=== PATIENT | female | born 1930 | race Caucasian/White ===

== ENCOUNTER → 2016-05-05 | Outpatient (CLI) | payer OTHER, BC ==
[~2016-05-05] MED LIST: ACET-1256 PO; ADVIN25/60 INH; AMOX500C3 PO; BIOT1TAB5; CHOL100010 PO; COEN10CA4; DORZ2SOL20 OP; FLUT0.15 NAE; GABA-112 PO; INSDGI SC; INSPMPHMLG; LEVO125T57 PO; NVLG SC; OMEG10007 PO; TORS20TA2 PO; TRAM-10 PO; TURM500C; WARF-283 PO; WARF1TAB6 PO; [UNRECOGNIZED DRUG - CODE]
[2016-05-05 16:59] LABS: BLOOD UREA NITROGEN 29 mg/dl (7-18)
== END | disposition home or self-care (01) ==
LOC: C.LABBC 12:25
DX: R42 Dizziness and giddiness (principal); Z51.81 Encounter for therapeutic drug level monitoring; Z79.01 Long term (current) use of anticoagulants

== ENCOUNTER → 2016-06-29 | Outpatient (CLI) | payer OTHER, BC ==
[~2016-06-29] MED LIST changes: +ACET500T57 PO; +HMLIS; +INSDGIPEN SC; +INSU3INJ3 SQ
[2016-06-29 17:04] LABS: BASO % 0.2 %; BASO ABS # 0.02 K/uL (0-0.2); COMPLETE YES; EOS % 1.2 %; HEMATOCRIT 44.5 % (37-47); IG% 0.2 %; LYMPH ABS # 3.27 K/uL (1.2-3.4); MEAN CELL VOLUME 101.4 fL (80-100); MEAN CORPUSCULAR HEMOGLOBIN 32.8 pg (25-34); MEAN CORPUSCULAR HGB CONC 32.4 g/dl (32-36); MEAN PLATELET VOLUME 11.1 fL (7.4-10.4); MONO % 7.2 %; NEUT % 59.2 %; PLATELET COUNT 193 K/uL (130-400); RED BLOOD COUNT 4.39 M/uL (4.2-5.4); WHITE BLOOD COUNT 10.22 K/uL (4.8-10.8)
[2016-06-29 17:12] LABS: BLOOD UREA NITROGEN 25 mg/dl (7-18); BUN/CREATININE RATIO 20.8 (10-20); CALCIUM 9.6 mg/dl (8.5-10.1); CARBON DIOXIDE 36 mmol/L (21-32); CHLORIDE 103 mmol/L (98-107); GLUCOSE 157 mg/dl (70-99); POTASSIUM 4.5 mmol/L (3.5-5.1); SODIUM 144 mmol/L (136-145)
== END | disposition home or self-care (01) ==
LOC: C.LABBC 15:05
PROVIDERS: ATTEND Internal Medicine Geriatric Medicine
DX: E03.9 Hypothyroidism, unspecified (principal); I10 Essential (primary) hypertension; J45.909 Unspecified asthma, uncomplicated; Z51.81 Encounter for therapeutic drug level monitoring; Z79.01 Long term (current) use of anticoagulants

== ENCOUNTER → 2016-07-29 | Outpatient (CLI) | payer OTHER, BC | END | disposition home or self-care (01) | LOC: C.PATHSPEC 16:45 | PROVIDERS: ATTEND Dermatology | DX: L82.1 Other seborrheic keratosis (principal); B07.9 Viral wart, unspecified ==

== ENCOUNTER → 2016-10-05 | Outpatient (CLI) | payer OTHER, BC ==
[~2016-10-05] MED LIST changes: -ACET500T57 PO; -AMOX500C3 PO; -HMLIS; -INSDGIPEN SC; -INSU3INJ3 SQ
[2016-10-05 14:05] LABS: BASO % 0.2 %; BASO ABS # 0.02 K/uL (0-0.2); COMPLETE YES; EOS % 1.4 %; HEMATOCRIT 43.9 % (37-47); IG% 0.7 %; LYMPH % 27.2 %; LYMPH ABS # 2.49 K/uL (1.2-3.4); MEAN CELL VOLUME 100.7 fL (80-100); MEAN CORPUSCULAR HEMOGLOBIN 33.5 pg (25-34); MEAN CORPUSCULAR HGB CONC 33.3 g/dl (32-36); MEAN PLATELET VOLUME 11.4 fL (7.4-10.4); MONO % 8.1 %; NEUT % 62.4 %; PLATELET COUNT 183 K/uL (130-400); RED BLOOD COUNT 4.36 M/uL (4.2-5.4); WHITE BLOOD COUNT 9.14 K/uL (4.8-10.8)
[2016-10-05 14:30] LABS: ESTIMATED AVERAGE GLUCOSE 171 mg/dl; HA1C FLAG Normal (Normal)
[2016-10-05 14:39] LABS: BLOOD UREA NITROGEN 20 mg/dl (7-18); BUN/CREATININE RATIO 16.8 (10-20); CALCIUM 9.8 mg/dl (8.5-10.1); CARBON DIOXIDE 34 mmol/L (21-32); CHLORIDE 102 mmol/L (98-107); GLUCOSE 168 mg/dl (70-99); POTASSIUM 4.2 mmol/L (3.5-5.1); SODIUM 141 mmol/L (136-145)
--- NOTE | 2016-11-06 10:40 | CODING QUERY MEDICAL NECESSITY ---
CQSUPPORTING DIAGNOSIS NEEDED A supporting diagnosis is required for the test/procedure performed on this patient in order for us to be reimbursed by the patient's insurance. Please provide a supporting diagnosis for the following test/procedure listed below next to the test name along with your signature. *If there is no additional diagnosis for this patient that would support the following test/procedure please document that below next to the test/procedure. Test(s)/Procedure(s) that require a supporting diagnosis: [place] 10/05/16 VITAMIN B12 TEST Provider Signature: Date: Thank you Aishwarya Gil Health Information Management Once completed, please kindly fax back to [phone] For questions please call [phone]
== END | disposition home or self-care (01) ==
LOC: C.LABBC 11:52
PROVIDERS: ATTEND Internal Medicine Geriatric Medicine
DX: E11.9 Type 2 diabetes mellitus without complications (principal); I10 Essential (primary) hypertension; J45.909 Unspecified asthma, uncomplicated; E55.9 Vitamin D deficiency, unspecified; Z51.81 Encounter for therapeutic drug level monitoring; Z79.01 Long term (current) use of anticoagulants

== ENCOUNTER → 2016-10-13 | Outpatient (CLI) | payer OTHER, BC | END | disposition home or self-care (01) | LOC: C.LABSPEC 16:48 | PROVIDERS: ATTEND Dermatology | DX: B35.3 Tinea pedis (principal) ==

== ENCOUNTER → 2016-10-30 | Outpatient (CLI) | payer OTHER, BC ==
[~2016-10-30] MED LIST changes: -TURM500C
--- NOTE | 2016-10-30 14:13 | DIAGNOSTIC IMAGING REPORT ---
BILATERAL LOWER EXTREMITY VENOUS DOPPLER HISTORY: I87.2 Chronic stasis [id number] COMPARISON STUDY: None. FINDINGS: There is normal compressibility, flow, and augmentation within the bilateral lower extremity deep venous systems. There is limited visualization of the calf vessels secondary to patient body habitus and nonspecific soft tissue edema. IMPRESSION: No sonographic evidence of deep venous thrombosis within the right or left lower extremity. Electronically signed by: Bala Noe M.D. 10/30/2016 2:12 PM Dictated Date/Time: 10/30/2016 2:11 PM
--- NOTE | 2016-10-30 14:32 | DIAGNOSTIC IMAGING REPORT ---
BILATERAL LOWER EXTREMITY ARTERIAL DOPPLER ULTRASOUND CLINICAL HISTORY: Chronic stasis dermatitis. COMPARISON STUDY: No previous studies for comparison. TECHNIQUE: Grayscale and color and duplex Doppler sonography of the lower extremities was performed. The patient deferred ankle to brachial indices. FINDINGS: There is triphasic flow within the right common femoral artery. There is biphasic flow within the right superficial femoral, popliteal, anterior tibial, posterior tibial and dorsalis pedis vessels. There is biphasic flow with the left common femoral, superficial femoral, popliteal, anterior tibial, posterior tibial and dorsalis pedis vessels. No elevated velocities were identified. There was minimal atherosclerotic plaque. IMPRESSION: Unremarkable bilateral lower extremity arterial Doppler ultrasound. No evidence of a hemodynamically significant stenosis. Patent vessels. Electronically signed by: Warner Villalta M.D. 10/30/2016 2:30 PM Dictated Date/Time: 10/30/2016 2:12 PM
== END | disposition home or self-care (01) ==
LOC: C.ULTR 12:32
PROVIDERS: ATTEND Internal Medicine Geriatric Medicine
DX: I87.2 Venous insufficiency (chronic) (peripheral) (principal)

== ENCOUNTER → 2016-11-09 | Outpatient (CLI) | payer OTHER, BC ==
--- NOTE | 2016-11-09 16:51 | DIAGNOSTIC IMAGING REPORT ---
HEAD CT NONCONTRAST CT DOSE: 537.48 mGy.cm HISTORY: Headaches, facial NUMBNESS TECHNIQUE: Multiaxial CT images of the head were performed without the use of intravenous contrast. Automated exposure control was utilized for this study. A dose lowering technique was utilized adhering to the principles of ALARA. Comparison: Head CT 02/18/2016. Findings: Moderate mucosal thickening within the left maxillary sinus which has improved. The mastoid air cells are clear. The calvarium and skull base are intact. There is no mass, hematoma, midline shift, acute infarct. White matter hypodensity is nonspecific but suggestive of microvascular ischemic change. The ventricles and sulci demonstrate mild age-related involutional changes. Impression: No acute intracranial abnormality. Improvement in the left maxillary sinus disease. Electronically signed by: Joaquin Alarcon M.D. 11/09/2016 4:49 PM Dictated Date/Time: 11/09/2016 4:46 PM
[2016-11-09 17:12] LABS: MEAN CELL VOLUME 99.5 fL (80-100); MEAN CORPUSCULAR HEMOGLOBIN 32.8 pg (25-34); MEAN PLATELET VOLUME 10.5 fL (7.4-10.4); PLATELET COUNT 186 K/uL (130-400); RED BLOOD COUNT 4.42 M/uL (4.2-5.4); WHITE BLOOD COUNT 9.96 K/uL (4.8-10.8)
[2016-11-11 11:17] LABS: C-REACTIVE PROT HIGHSEN 2.6 MG/L
--- NOTE | 2016-11-20 06:57 | CODING QUERY MEDICAL NECESSITY ---
SUPPORTING DIAGNOSIS NEEDED A supporting diagnosis is required for the test/procedure performed on this patient in order for us to be reimbursed by the patient's insurance. Please provide a supporting diagnosis for the following test/procedure listed below next to the test name along with your signature. *If there is no additional diagnosis for this patient that would support the following test/procedure please document that below next to the test/procedure. Test(s)/Procedure(s) that require a supporting diagnosis: * C-REACT PROTEIN HIGHSENS (CARDIO) DIAGNOSIS: Provider Signature: Date: Thank you Michelle Willard [facility] Limited Information Management Once completed, please kindly fax back to [phone] For questions please call [phone]
== END | disposition home or self-care (01) ==
LOC: C.CTS 16:31
PROVIDERS: ATTEND Physician Assistant
DX: R51 Headache (principal); R20.0 Anesthesia of skin; I67.9 Cerebrovascular disease, unspecified

== ENCOUNTER → 2016-11-11 | Outpatient (CLI) | payer OTHER, BC ==
[2016-11-11 22:03] LABS: LYME DISEASE AB IGG NEG (NEG); LYME DISEASE AB IGM NEG (NEG)
== END | disposition home or self-care (01) ==
LOC: C.LABBC 13:26
PROVIDERS: ATTEND Physician Assistant
DX: R53.83 Other fatigue (principal); R42 Dizziness and giddiness; R51 Headache

== ENCOUNTER → 2016-11-13 | Outpatient (CLI) | payer OTHER, BC ==
[2016-11-13 17:11] LABS: BLOOD UREA NITROGEN 32 mg/dl (7-18)
== END | disposition home or self-care (01) ==
LOC: C.LABBC 13:34
PROVIDERS: ATTEND Physician Assistant
DX: I10 Essential (primary) hypertension (principal); R42 Dizziness and giddiness

== ENCOUNTER → 2016-11-17 | Outpatient (CLI) | payer OTHER, BC ==
[~2016-11-17] MED LIST changes: +GADAVIST IV PRN
--- NOTE | 2016-11-17 10:10 | DIAGNOSTIC IMAGING REPORT ---
BRAIN COMBO FOR IAC CLINICAL HISTORY: Vertigo. COMPARISON STUDY: MRI of the brain April 14, [address] November 09, 2016. TECHNIQUE: Utilizing a 1.5 Ayah magnet, multiplanar, multi echo imaging of the brain was performed pre and postcontrast administration with thin cut imaging through the internal auditory canals. Injection of 8.5 cc of Gadavist IV was uneventful. FINDINGS: There are no areas of restricted diffusion. No acute intracranial hemorrhage, midline shift or mass effect is present. Ventricular system is normal for age. Basilar cisterns are patent. There are no extra-axial collections. Flow-voids for the major intracranial vessels are present. A 1.1 cm extra-axial enhancing focus overlying the anterior right frontal lobe likely reflects a meningioma which is only minimally increased in size since exam of April 14, 2007. There is no fluid within the mastoid air cells. No mass or abnormal enhancement is identified within the internal auditory canals. Left maxillary sinus is partially opacified. This is chronic. Calvarial signal is normal. White matter T2 hyperintense foci suggest small vessel disease. IMPRESSION: 1. No acute intracranial findings. 2. No abnormalities within the internal auditory canals. 3. Minimal increase in size of a suspected 1.1 cm right frontal meningioma since MRI of April 14, 2007. Electronically signed by: Warner Villalta M.D. 11/17/2016 10:09 AM Dictated Date/Time: 11/17/2016 9:58 AM
== END | disposition home or self-care (01) ==
LOC: C.MRIBC 08:48
PROVIDERS: ATTEND Physician Assistant
DX: R42 Dizziness and giddiness (principal)

== ENCOUNTER → 2016-11-20 | Outpatient (CLI) | payer OTHER, BC ==
[~2016-11-20] MED LIST changes: -GADAVIST IV PRN
[2016-11-20 13:54] LABS: BLOOD UREA NITROGEN 26 mg/dl (7-18); BUN/CREATININE RATIO 19.6 (10-20); CARBON DIOXIDE 35 mmol/L (21-32); CHLORIDE 98 mmol/L (98-107); GLUCOSE 105 mg/dl (70-99); SODIUM 141 mmol/L (136-145)
== END | disposition home or self-care (01) ==
LOC: C.LABBC 11:52
PROVIDERS: ATTEND Physician Assistant
DX: E11.9 Type 2 diabetes mellitus without complications (principal)

== ENCOUNTER → 2016-12-18 | Outpatient (CLI) | payer OTHER, BC ==
[~2016-12-18] MED LIST changes: +ACET500T57 PO; -ADVIN25/60 INH; -COEN10CA4; -INSDGI SC; -INSPMPHMLG; +INSU3INJ3 SQ
[2016-12-18 16:45] LABS: BLOOD UREA NITROGEN 29 mg/dl (7-18); BUN/CREATININE RATIO 24.7 (10-20); CALCIUM 9.3 mg/dl (8.5-10.1); CARBON DIOXIDE 33 mmol/L (21-32); CHLORIDE 102 mmol/L (98-107); CREATININE 1.19 mg/dl (0.60-1.20); GLUCOSE 178 mg/dl (70-99); POTASSIUM 4.6 mmol/L (3.5-5.1); SODIUM 140 mmol/L (136-145)
[2016-12-18 16:55] LABS: CREATININE, URINE 77.7 mg/dl; URINE PROTIEN/CREAT RATIO 0.1 (0-0.2); URINE TOTAL PROTEIN 7.1 mg/dl (0-11.9)
[2016-12-18 19:59] LABS: BASO % 0.2 %; BASO ABS # 0.02 K/uL (0-0.2); COMPLETE YES; EOS % 1.1 %; IG% 0.3 %; LYMPH % 31.8 %; LYMPH ABS # 2.83 K/uL (1.2-3.4); MEAN CELL VOLUME 100.7 fL (80-100); MEAN CORPUSCULAR HGB CONC 31.8 g/dl (32-36); MEAN PLATELET VOLUME 11.3 fL (7.4-10.4); NEUT % 56.6 %; PLATELET COUNT 168 K/uL (130-400); RED BLOOD COUNT 4.37 M/uL (4.2-5.4); WHITE BLOOD COUNT 8.91 K/uL (4.8-10.8)
[2016-12-19 06:49] LABS: ESTIMATED AVERAGE GLUCOSE 151 mg/dl; HA1C FLAG Normal (Normal)
== END | disposition home or self-care (01) ==
LOC: C.LABBC 13:28
PROVIDERS: ATTEND Internal Medicine Geriatric Medicine
DX: E11.42 Type 2 diabetes mellitus with diabetic polyneuropathy (principal); E03.9 Hypothyroidism, unspecified; E11.22 Type 2 diabetes mellitus with diabetic chronic kidney disease; I12.9 Hypertensive chronic kidney disease with stage 1 through stage 4 chronic kidney disease, or unspecified chronic kidney disease; N18.3 Chronic kidney disease, stage 3 (moderate); E55.9 Vitamin D deficiency, unspecified

== ENCOUNTER → 2016-12-28 | Outpatient (CLI) | payer OTHER, BC ==
--- NOTE | 2016-12-28 12:42 | DIAGNOSTIC IMAGING REPORT ---
CHEST 2 VIEWS ROUTINE CLINICAL HISTORY: R06.09 Exertional [id number] COMPARISON STUDY: 02/20/2014 FINDINGS: The cardiac and mediastinal contours remain stable. There is no focal pulmonary consolidation. There is no failure. There are no pleural effusions. There is mild chronic interstitial thickening.[ There are postsurgical changes of a reverse total right shoulder arthroplasty IMPRESSION: No active disease in the chest. Electronically signed by: Harry Eisenberg M.D. 12/28/2016 12:40 PM Dictated Date/Time: 12/28/2016 12:39 PM
== END | disposition home or self-care (01) ==
LOC: C.RADBC 12:19
PROVIDERS: ATTEND Internal Medicine Geriatric Medicine
DX: R06.09 Other forms of dyspnea (principal)

== ENCOUNTER → 2017-02-20 | Outpatient (CLI) | payer BC ==
[~2017-02-20] MED LIST changes: -ACET500T57 PO; +ACET500T58 PO; +HMLIS; +INSDGIPEN SC; -INSU3INJ3 SQ; -NVLG SC
--- NOTE | 2017-02-20 11:15 | DIAGNOSTIC IMAGING REPORT ---
CHEST 2 VIEWS ROUTINE HISTORY: R04.2 Coughing blood COMPARISON: Chest 12/28/2016. FINDINGS: Mild chronic interstitial thickening, unchanged. Stable right hilar prominence. No new focal lung consolidations to suggest pneumonia. No evidence for pulmonary edema. Right shoulder prosthesis. No pleural effusions. No pneumothorax. The heart is normal in size. IMPRESSION: No significant change compared to the prior study. No acute process. Electronically signed by: Joaquin Alarcon M.D. 02/20/2017 11:14 AM Dictated Date/Time: 02/20/2017 11:13 AM
== END | disposition home or self-care (01) ==
LOC: C.RAD 10:46
PROVIDERS: ATTEND Internal Medicine
DX: R04.2 Hemoptysis (principal)

== ENCOUNTER 2017-05-09 11:54 | Emergency (ER) | payer OTHER, BC ==
[~2017-05-09] VITALS: Ht 154.9 cm; Wt 86.0 kg
[~2017-05-09 11:54] MED LIST changes: -ACET500T58 PO; +CARB25TA12 PO; +CYAN10005 PO; -GABA-112 PO; +LIDO4LIQ; +OXYBUTYNIN PO; +PANT40TA PO; +SENN-61 PO; -WARF1TAB6 PO
[2017-05-09 11:56] VITALS: TEMP 36.8; Ht 154.9 cm; Wt 86.0 kg
[2017-05-09] MEDS ORDERED: TRAMADOL HCL 50 MG TAB PO STA (12:15)
[2017-05-09] MEDS ORDERED: ACETAMINOPHEN 500 MG TAB PO STA (12:15)
[2017-05-09 12:29] VITALS: O2SAT 92
--- NOTE | 2017-05-09 12:29 | EMERGENCY ROOM VISIT NOTE ---
History Report prepared by Simba: Bob Ward Under the Supervision of: Dr. Garret Bishop M.D. First contact with patient: 12:05 Chief Complaint: FALL Stated Complaint: FELL History of Present Illness The patient is a 86 year old female who presents to the Emergency Room due to a recent fall. Patient states that she was walking with a cane this morning going to [employer]. She states that she fell when her was trying to take off her coat. She believes that she fell with her palms facing down. Patient has associated symptoms of knee, shoulder, and hand pain. She adds that she has intermittent knee spasms. She states that red legs are her baseline. 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 Patient states that she does not remember what her last INR level was. She adds that she is supposed to use inhalers at home but forgets. Patient adds that she is on pain medication right now for a recent concussion. Pertinent past medical history includes arthritis and diabetes. Pertinent past surgical history includes knee surgery. Patient states the surgery was performed by Dr. Aldrich. Source of History: patient Onset: Recent Position: other (Global) Modifying Factors (Relieving): other (None) Note: Patient has knee, shoulder, and hand pain. She adds that she has knee spasms. Review of Systems See HPI for pertinent positives & negatives. A total of 10 systems reviewed and were otherwise negative. Past Medical & Surgical Medical Problems: (1) Diabetes (2) H/O hip replacement Surgical Problems: (1) H/O shoulder replacement (2) History of back surgery Family History Cancer Diabetes mellitus Heart disease Social History Smoking Status: Never Smoker Alcohol Use: none Drug Use: none Marital Status: Housing Status: lives with family Occupation Status: retired Current/Historical Medications Scheduled Acetaminophen (Tylenol), 1,000 MG PO HS Carbidopa/Levodopa (Sinemet 25MG/100MG), 0.5 TAB PO TID Cholecalciferol (Vitamin D), 5,000 INTER.UNIT PO DAILY Cyanocobalamin (Vitamin B-12), 1,000 MCG PO DAILY Dorzolamide Hcl-Timolol Maleat (Cosopt Oph), 1 DROPS OP QD Fish Oil ([place]-3), 1 CAP PO DAILY Insulin Glargine (Lantus Solostar), 36 UNITS SC QAM Insulin Glargine (Lantus Solostar), 22 UNITS SC QPM Insulin Human Lispro (Humalog Kwikpen), AC Levothyroxine (Levoxyl), 0.125 MG PO DAILY Pantoprazole (Protonix), 40 MG PO DAILY Senna (Senokot), 1 TAB PO DAILY Torsemide (Demadex), 1-2 TAB PO DAILY Warfarin Sodium (Warfarin Sodium), 4 MG PO 4XWK [calcium/mag], 2 DAILY [oxbutynin chloride], 10 MG PO DAILY Scheduled PRN Fluticasone Propionate (Nasal) (Flonase Allergy Relief), 2 SPRAYS MARIEL QD PRN for . Tramadol (Ultram), 50 MG PO DAILY PRN for Pain Miscellaneous Medications Biotin (Biotin) Lidocaine HCl (Aspercreme Lidocaine) Allergies Coded Allergies: Atorvastatin (Verified Allergy, Unknown, RASH, 11/09/15) Ezetimibe (Verified Allergy, Unknown, RASH, 11/09/15) Fluoxetine (Verified Allergy, Unknown, RASH, 11/09/15) Simvastatin (Verified Allergy, Unknown, RASH, 11/09/15) Sulfa Drugs (Verified Allergy, Unknown, HAS TAKEN LASIX BEFORE, 11/09/15) Oxycodone (Verified Adverse Reaction, Intermediate, PAIN MED-?OXYCONTIN- WENT CRAZY,BAD DREAMS, 11/09/15) Physical Exam Vital Signs Date Time Temp Pulse Resp B/P (MAP) Pulse Ox O2 Delivery O2 Flow Rate FiO2 05/09/17 13:46 66 20 143/62 95 Room Air 05/09/17 12:33 74 05/09/17 12:29 92 Room Air 05/09/17 11:56 36.8 68 18 156/67 93 Room Air Physical Exam GENERAL: Awake, alert, well-appearing, in no acute distress HENT: Contusion at center of forehead. Oropharynx unremarkable. EYES: Normal conjunctiva. Sclera non-icteric. NECK: Supple. No nuchal rigidity. FROM. No JVD. RESPIRATORY: Clear to auscultation. CARDIAC: Regular rate, normal rhythm. Extremities warm and well perfused. Pulses equal. ABDOMEN: Soft, non-distended. No tenderness to palpation. No rebound or guarding. No masses. RECTAL: Deferred. MUSCULOSKELETAL: Good range of motion in right shoulder, right hip, and right knee. Chest examination reveals no tenderness. The back is symmetrical on inspection without obvious abnormality. There is no CVA tenderness to palpation. No joint edema. LOWER EXTREMITIES: Calves are equal size bilaterally and non-tender. No edema. No discoloration. NEURO: Neurovascularly intact at the foot. Normal sensorium. No sensory or motor deficits noted. SKIN: No rash or jaundice noted. Medical Decision & Procedures ER Provider Diagnostic Interpretation: Radiology results as stated below per my review and radiologist interpretation: CHEST ONE VIEW PORTABLE CLINICAL HISTORY: Pain status post trauma COMPARISON STUDY: 02/20/2017 FINDINGS: The cardiac and mediastinal contours remain stable. There is interstitial thickening, similar to the preceding study. There is no acute parenchymal consolidation. There are no pleural effusions. There is no pneumothorax. Postsurgical changes involve the right shoulder.[ IMPRESSION: Mild chronic interstitial thickening. No acute parenchymal consolidation. No evidence of pneumothorax. Electronically signed by: Harry Eisenberg M.D. 05/09/2017 2:00 PM R FEMUR 2 VIEWS ROUTINE CLINICAL HISTORY: Right hip and femur pain status post trauma COMPARISON: None. DISCUSSION: There are postsurgical changes of a total right hip arthroplasty. There are postsurgical changes of a total right knee arthroplasty. No acute fractures or dislocations are visualized. There are vascular calcifications present. IMPRESSION: Postsurgical changes. No acute fractures or dislocations identified. Electronically signed by: Harry Eisenberg M.D. 05/09/2017 1:[address] HEAD WITHOUT CONTRAST (CT) CLINICAL HISTORY: Head pain status post trauma COMPARISON STUDY: 11/09/2016 TECHNIQUE: Axial CT of the brain is performed from the vertex to the skull base. IV contrast was not administered for this examination. A dose lowering technique was utilized adhering to the principles of ALARA. CT DOSE: 537.48 mGy.cm FINDINGS: No intra or extra-axial mass lesions are visualized. There is no CT evidence of acute cortical infarction. There is no evidence of midline shift. There is no acute hemorrhage. No calvarial fractures are visualized. There are patchy white matter hypodensities likely on a small vessel basis. There is a stable cortical hypodensity within the left parasagittal frontoparietal region There is no evidence of pathologic ventricular dilatation. There is marked left maxilla sinus mucosal thickening. Calcific densities are present within the sinus. The findings remain similar to a prior June 2013 examination IMPRESSION: No acute intracranial findings. Electronically signed by: Harry Eisenberg M.D. 05/09/2017 1:10 PM R KNEE 2 VIEWS ROUTINE CLINICAL HISTORY: Right knee pain status post trauma COMPARISON: None. DISCUSSION: There are postsurgical changes of a total right knee arthroplasty and patellar resurfacing. No acute fractures or dislocations are visualized. There are vascular calcifications present. There is an equivocal small joint effusion. IMPRESSION: Postsurgical change. No acute fractures or dislocations. Electronically signed by: Harry Eisenberg M.D. 05/09/2017 1:58 PM PELVIS 1 OR 2 VIEW ROUTINE CLINICAL HISTORY: Pain status post trauma COMPARISON STUDY: 2013 FINDINGS: There are postsurgical changes present within the lumbar spine. There are postsurgical changes of a total right hip arthroplasty. There are vascular calcifications present. No acute fractures or dislocations are visualized. IMPRESSION: Postsurgical changes. No acute fractures. Electronically signed by: Harry Eisenberg M.D. 05/09/2017 1:58 PM R SHOULDER MIN 2 VIEWS ROUTINE CLINICAL HISTORY: Right shoulder pain status post trauma COMPARISON: None. DISCUSSION: There are postsurgical changes of a reversed total right shoulder arthroplasty. No acute fractures or dislocations are visualized. There is a prominent spurlike density arising from the superior lateral margin of the scapula. This is present on the prior January 2017 chest x-ray. IMPRESSION: Postsurgical change. No acute fractures or dislocations are visualized Electronically signed by: Harry Eisenberg M.D. 05/09/2017 1:59 PM Laboratory Results 05/09/17 12:30 Red Blood Count 4.12, Mean Corpuscular Volume 99.5, Mean Corpuscular Hemoglobin 32.8, Mean Corpuscular Hemoglobin Concent 32.9, Mean Platelet Volume 10.2, Neutrophils (%) (Auto) 67.6, Lymphocytes (%) (Auto) 23.8, Monocytes (%) (Auto) 6.7, Eosinophils (%) (Auto) 1.2, Basophils (%) (Auto) 0.3, Neutrophils # (Auto) 6.96, Lymphocytes # (Auto) 2.45, Monocytes # (Auto) 0.69, Eosinophils # (Auto) 0.12, Basophils # (Auto) 0.03 05/09/17 12:30 Test 05/09/17 12:30 05/09/17 12:31 05/09/17 13:14 White Blood Count 10.29 K/uL (4.8-10.8) Red Blood Count 4.12 M/uL (4.2-5.4) Hemoglobin 13.5 g/dL (12.0-16.0) Hematocrit 41.0 % (37-47) Mean Corpuscular Volume 99.5 fL (80-100) Mean Corpuscular Hemoglobin 32.8 pg (25-34) Mean Corpuscular Hemoglobin Concent 32.9 g/dl (32-36) Platelet Count 166 K/uL (130-400) Mean Platelet Volume 10.2 fL (7.4-10.4) Neutrophils (%) (Auto) 67.6 % Lymphocytes (%) (Auto) 23.8 % Monocytes (%) (Auto) 6.7 % Eosinophils (%) (Auto) 1.2 % Basophils (%) (Auto) 0.3 % Neutrophils # (Auto) 6.96 K/uL (1.4-6.5) Lymphocytes # (Auto) 2.45 K/uL (1.2-3.4) Monocytes # (Auto) 0.69 K/uL (0.11-0.59) Eosinophils # (Auto) 0.12 K/uL (0-0.5) Basophils # (Auto) 0.03 K/uL (0-0.2) RDW Standard Deviation 48.0 fL (36.4-46.3) RDW Coefficient of Variation 13.2 % (11.5-14.5) Immature Granulocyte % (Auto) 0.4 % Immature Granulocyte # (Auto) 0.04 K/uL (0.00-0.02) Anion Gap 5.0 mmol/L (3-11) Est Creatinine Clear Calc Drug Dose 29.5 ml/min Estimated GFR () 42.0 Estimated GFR (Non- 36.3 BUN/Creatinine Ratio 21.1 (10-20) Calcium Level 10.0 mg/dl (8.5-10.1) Total Bilirubin 0.4 mg/dl (0.2-1) Direct Bilirubin < 0.1 mg/dl (0-0.2) Aspartate Amino Transf (AST/SGOT) 15 U/L (15-37) Alanine Aminotransferase (ALT/SGPT) 16 U/L (12-78) Alkaline Phosphatase 72 U/L (45-117) Total Protein 6.5 gm/dl (6.4-8.2) Albumin 3.1 gm/dl (3.4-5.0) Bedside Glucose 174 mg/dl (70-90) Prothrombin Time 14.9 SECONDS (9.0-12.0) Prothromb Time International Ratio 1.4 (0.9-1.1) Activated Partial Thromboplast Time 26.9 SECONDS (21.0-31.0) Partial Thromboplastin Ratio 1.0 Labs reviewed by ED physician. Medications Administered Medications (Trade) Dose Ordered Sig/Mitali Route Start Time Stop Time Status Last Admin Dose Admin Tramadol HCl (Ultram Tab) 50 mg NOW STAT PO 05/09/17 12:15 05/09/17 12:20 DC 05/09/17 12:27 50 MG Acetaminophen (Tylenol Tab) 1,000 mg NOW STAT PO 05/09/17 12:15 05/09/17 12:20 DC 05/09/17 12:27 1,000 MG ED Course 1201: Past medical records reviewed. The patient was evaluated in room B4B. A complete history and physical examination was performed. 1215: Tylenol Tab 1000mg PO and Ultram Tab 50mg PO 1412: Upon reexamination the patient is resting comfortably. I discussed results and treatment plan with the patient. She verbalizes agreement and understanding. The patient is ready for discharge. Medical Decision Differential diagnosis: Etiologies such as fracture, dislocation, intra-abdominal, pneumothorax, intrathoracic , intracranial, neurologic, as well as other traumatic pathologies were entertained. This is an 86-year-old female presents to the emergency department complaining of a fall. The patient's fall was mechanical in nature. She was given tramadol here in the emergency department. Repeat examination revealed improvement in the patient's symptoms. There is concern that there may be pneumonia on the patient's chest x-ray. Based on these findings I did start the patient on Levaquin. She does not have an elevated white blood cell count and I felt that the patient would benefit from a rehabilitation stay. This reason I did case management involved. They asked that the patient received PT OT evaluation. Medication Reconcilliation Current Medication List: was personally reviewed by me Blood Pressure Screening Patient's blood pressure: Elevated blood pressure Blood pressure disposition: Referred to PCP Impression Primary Impression: Fall Scribe Attestation The scribe's documentation has been prepared under my direction and personally reviewed by me in its entirety. I confirm that the note above accurately reflects all work, treatment, procedures, and medical decision making performed by me. Departure Information Dispostion Home / Self-Care Referrals René French M.D. (PCP) Forms HOME CARE DOCUMENTATION FORM, IMPORTANT VISIT INFORMATION Patient Instructions ED Fall Dizziness Weakn Balance, My [facility], Swelling Knee Pain Reduce Additional Instructions Follow up with Dr Santoyo's office for continued knee pain You have been examined and treated today on an emergency basis only. This is not a substitute for, or an effort to provide, complete comprehensive medical care. It is impossible to recognize and treat all injuries or illnesses in a single emergency department visit. It is therefore important that you follow up closely with Dr French. Call as soon as possible for an appointment. Thank you for your time and consideration. I look forward to speaking with you again soon. Please don't hesitate to call us if you have any questions. Problem Qualifiers Primary Impression: Fall Encounter type: initial encounter Qualified Codes: W19.XXXA - Unspecified fall, initial encounter
[2017-05-09 12:43] LABS: BASO % 0.3 %; BASO ABS # 0.03 K/uL (0-0.2); EOS % 1.2 %; EOS ABS # 0.12 K/uL (0-0.5); HEMOGLOBIN 13.5 g/dL (12.0-16.0); IG# 0.04 K/uL (0.00-0.02); LYMPH % 23.8 %; LYMPH ABS # 2.45 K/uL (1.2-3.4); MEAN CELL VOLUME 99.5 fL (80-100); MEAN CORPUSCULAR HEMOGLOBIN 32.8 pg (25-34); MEAN CORPUSCULAR HGB CONC 32.9 g/dl (32-36); MEAN PLATELET VOLUME 10.2 fL (7.4-10.4); MONO % 6.7 %; MONO ABS # 0.69 K/uL (0.11-0.59); NEUT % 67.6 %; NEUT ABS # 6.96 K/uL (1.4-6.5); PLATELET COUNT 166 K/uL (130-400); RED CELL DISTRIBUTION WIDTH CV 13.2 % (11.5-14.5); WHITE BLOOD COUNT 10.29 K/uL (4.8-10.8)
[2017-05-09 13:04] LABS: ALBUMIN 3.1 gm/dl (3.4-5.0); ALT/SGPT 16 U/L (12-78); AST/SGOT 15 U/L (15-37); BLOOD UREA NITROGEN 28 mg/dl (7-18); CARBON DIOXIDE 35 mmol/L (21-32); CREATININE 1.31 mg/dl (0.60-1.20); GLUCOSE 175 mg/dl (70-99); POTASSIUM 4.4 mmol/L (3.5-5.1); SODIUM 140 mmol/L (136-145)
[2017-05-09 13:07] LABS: ALKALINE PHOSPHATASE 72 U/L (45-117); TOTAL PROTEIN 6.5 gm/dl (6.4-8.2)
--- NOTE | 2017-05-09 13:11 | DIAGNOSTIC IMAGING REPORT ---
CT HEAD WITHOUT CONTRAST (CT) CLINICAL HISTORY: Head pain status post trauma COMPARISON STUDY: 11/09/2016 TECHNIQUE: Axial CT of the brain is performed from the vertex to the skull base. IV contrast was not administered for this examination. A dose lowering technique was utilized adhering to the principles of ALARA. CT DOSE: 537.48 mGy.cm FINDINGS: No intra or extra-axial mass lesions are visualized. There is no CT evidence of acute cortical infarction. There is no evidence of midline shift. There is no acute hemorrhage. No calvarial fractures are visualized. There are patchy white matter hypodensities likely on a small vessel basis. There is a stable cortical hypodensity within the left parasagittal frontoparietal region There is no evidence of pathologic ventricular dilatation. There is marked left maxilla sinus mucosal thickening. Calcific densities are present within the sinus. The findings remain similar to a prior June 2013 examination IMPRESSION: No acute intracranial findings. Electronically signed by: Harry Eisenberg M.D. 05/09/2017 1:10 PM Dictated Date/Time: 05/09/2017 1:06 PM
[2017-05-09 13:42] LABS: INR 1.4 (0.9-1.1); PTT PATIENT 26.9 SECONDS (21.0-31.0)
[2017-05-09 13:46] VITALS: BP 143/62; PULSE 66; O2SAT 95
--- NOTE | 2017-05-09 13:59 | DIAGNOSTIC IMAGING REPORT ---
R KNEE 2 VIEWS ROUTINE CLINICAL HISTORY: Right knee pain status post trauma COMPARISON: None. DISCUSSION: There are postsurgical changes of a total right knee arthroplasty and patellar resurfacing. No acute fractures or dislocations are visualized. There are vascular calcifications present. There is an equivocal small joint effusion. IMPRESSION: Postsurgical change. No acute fractures or dislocations. Electronically signed by: Harry Eisenberg M.D. 05/09/2017 1:58 PM Dictated Date/Time: 05/09/2017 1:45 PM
--- NOTE | 2017-05-09 14:00 | DIAGNOSTIC IMAGING REPORT ---
PELVIS 1 OR 2 VIEW ROUTINE CLINICAL HISTORY: Pain status post trauma COMPARISON STUDY: 2013 FINDINGS: There are postsurgical changes present within the lumbar spine. There are postsurgical changes of a total right hip arthroplasty. There are vascular calcifications present. No acute fractures or dislocations are visualized. IMPRESSION: Postsurgical changes. No acute fractures. Electronically signed by: Harry Eisenberg M.D. 05/09/2017 1:58 PM Dictated Date/Time: 05/09/2017 1:43 PM
--- NOTE | 2017-05-09 14:00 | DIAGNOSTIC IMAGING REPORT ---
R SHOULDER MIN 2 VIEWS ROUTINE CLINICAL HISTORY: Right shoulder pain status post trauma COMPARISON: None. DISCUSSION: There are postsurgical changes of a reversed total right shoulder arthroplasty. No acute fractures or dislocations are visualized. There is a prominent spurlike density arising from the superior lateral margin of the scapula. This is present on the prior January 2017 chest x-ray. IMPRESSION: Postsurgical change. No acute fractures or dislocations are visualized Electronically signed by: Harry Eisenberg M.D. 05/09/2017 1:59 PM Dictated Date/Time: 05/09/2017 1:42 PM
--- NOTE | 2017-05-09 14:00 | DIAGNOSTIC IMAGING REPORT ---
R FEMUR 2 VIEWS ROUTINE CLINICAL HISTORY: Right hip and femur pain status post trauma COMPARISON: None. DISCUSSION: There are postsurgical changes of a total right hip arthroplasty. There are postsurgical changes of a total right knee arthroplasty. No acute fractures or dislocations are visualized. There are vascular calcifications present. IMPRESSION: Postsurgical changes. No acute fractures or dislocations identified. Electronically signed by: Harry Eisenberg M.D. 05/09/2017 1:58 PM Dictated Date/Time: 05/09/2017 1:44 PM
--- NOTE | 2017-05-09 14:01 | DIAGNOSTIC IMAGING REPORT ---
CHEST ONE VIEW PORTABLE CLINICAL HISTORY: Pain status post trauma COMPARISON STUDY: 02/20/2017 FINDINGS: The cardiac and mediastinal contours remain stable. There is interstitial thickening, similar to the preceding study. There is no acute parenchymal consolidation. There are no pleural effusions. There is no pneumothorax. Postsurgical changes involve the right shoulder.[ IMPRESSION: Mild chronic interstitial thickening. No acute parenchymal consolidation. No evidence of pneumothorax. Electronically signed by: Harry Eisenberg M.D. 05/09/2017 2:00 PM Dictated Date/Time: 05/09/2017 1:59 PM
== END 2017-05-09 14:30 | disposition home or self-care (01) ==
LOC: C.EDB 11:55
DX: S00.83XA Contusion of other part of head, initial encounter (principal); M25.569 Pain in unspecified knee; M25.519 Pain in unspecified shoulder; M79.643 Pain in unspecified hand; W01.198A Fall on same level from slipping, tripping and stumbling with subsequent striking against other object, initial encounter; R03.0 Elevated blood-pressure reading, without diagnosis of hypertension; M19.90 Unspecified osteoarthritis, unspecified site; E11.9 Type 2 diabetes mellitus without complications; Z79.01 Long term (current) use of anticoagulants; Z86.2 Personal history of diseases of the blood and blood-forming organs and certain disorders involving the immune mechanism; Z98.890 Other specified postprocedural states; Z96.649 Presence of unspecified artificial hip joint; Z79.4 Long term (current) use of insulin; Z88.8 Allergy status to other drugs, medicaments and biological substances; Z88.6 Allergy status to analgesic agent; Z88.2 Allergy status to sulfonamides; Z83.3 Family history of diabetes mellitus; Z82.49 Family history of ischemic heart disease and other diseases of the circulatory system

== ENCOUNTER → 2017-06-28 | Outpatient (CLI) | payer OTHER, BC ==
[2017-06-28 16:55] LABS: BASO % 0.2 %; BASO ABS # 0.02 K/uL (0-0.2); EOS % 1.3 %; EOS ABS # 0.14 K/uL (0-0.5); HEMATOCRIT 45.7 % (37-47); IG# 0.03 K/uL (0.00-0.02); LYMPH % 25.3 %; LYMPH ABS # 2.73 K/uL (1.2-3.4); MEAN CELL VOLUME 99.1 fL (80-100); MEAN CORPUSCULAR HEMOGLOBIN 32.5 pg (25-34); MEAN CORPUSCULAR HGB CONC 32.8 g/dl (32-36); MONO % 7.8 %; MONO ABS # 0.84 K/uL (0.11-0.59); NEUT % 65.1 %; NEUT ABS # 7.02 K/uL (1.4-6.5); PLATELET COUNT 186 K/uL (130-400); RED CELL DISTRIBUTION WIDTH CV 12.9 % (11.5-14.5); RED CELL DISTRIBUTION WIDTH SD 46.6 fL (36.4-46.3); WHITE BLOOD COUNT 10.78 K/uL (4.8-10.8)
[2017-06-28 17:02] LABS: INR 1.7 (0.9-1.1)
[2017-06-28 17:21] LABS: ALBUMIN 3.5 gm/dl (3.4-5.0); ALT/SGPT 17 U/L (12-78); AST/SGOT 18 U/L (15-37); BLOOD UREA NITROGEN 32 mg/dl (7-18); CALCIUM 10.5 mg/dl (8.5-10.1); CARBON DIOXIDE 37 mmol/L (21-32); CREATININE 1.37 mg/dl (0.60-1.20); GLUCOSE 87 mg/dl (70-99); POTASSIUM 4.3 mmol/L (3.5-5.1); SODIUM 141 mmol/L (136-145)
[2017-06-28 17:32] LABS: ALKALINE PHOSPHATASE 70 U/L (45-117); CHOLESTEROL 190 mg/dl (0-200); LDL CHOLESTEROL CALCULATED 86 mg/dl; TOTAL PROTEIN 7.2 gm/dl (6.4-8.2)
[2017-06-29 07:32] LABS: HEMOGLOBIN A1C 6.6 % (4.5-5.6)
== END | disposition home or self-care (01) ==
LOC: C.LABBC 14:40
PROVIDERS: ATTEND Internal Medicine Geriatric Medicine
DX: R32 Unspecified urinary incontinence (principal); Z79.01 Long term (current) use of anticoagulants

== ENCOUNTER → 2017-07-05 | Outpatient (CLI) | payer OTHER, BC ==
[2017-07-05 18:20] LABS: BLOOD UREA NITROGEN 27 mg/dl (7-18); CALCIUM 9.4 mg/dl (8.5-10.1); CARBON DIOXIDE 36 mmol/L (21-32); CREATININE 1.36 mg/dl (0.60-1.20); GLUCOSE 122 mg/dl (70-99); POTASSIUM 4.4 mmol/L (3.5-5.1); SODIUM 142 mmol/L (136-145)
== END | disposition home or self-care (01) ==
LOC: C.LABBC 13:16
PROVIDERS: ATTEND Internal Medicine Geriatric Medicine
DX: Z79.01 Long term (current) use of anticoagulants (principal); E83.52 Hypercalcemia

== ENCOUNTER 2017-10-25 12:42 | Emergency (ER) | payer OTHER, BC ==
[2017-10-25 12:44] VITALS: TEMP 36.8; Ht 154.9 cm
--- NOTE | 2017-10-25 13:22 | DIAGNOSTIC IMAGING REPORT ---
CHEST ONE VIEW PORTABLE HISTORY: fall COMPARISON: Chest 05/09/2017. FINDINGS: Chronic interstitial thickening, unchanged. There are low lung volumes. The heart is normal in size. No focal lung consolidations to suggest pneumonia. No evidence for pulmonary edema. There is a right shoulder prosthesis. IMPRESSION: No significant change compared to the prior study. No acute process. Stable chronic interstitial thickening. Electronically signed by: Joaquin Alarcon M.D. 10/25/2017 1:21 PM Dictated Date/Time: 10/25/2017 1:19 PM
[2017-10-25] MEDS ORDERED: LEVO125T5 PO (13:44)
[2017-10-25] MEDS ORDERED: CHOL1000 PO (13:44)
[2017-10-25 13:45] LABS: BASO % 0.2 %; BASO ABS # 0.02 K/uL (0-0.2); EOS % 0.5 %; EOS ABS # 0.05 K/uL (0-0.5); HEMATOCRIT 42.9 % (37-47); IG# 0.04 K/uL (0.00-0.02); LYMPH % 24.7 %; LYMPH ABS # 2.26 K/uL (1.2-3.4); MEAN CELL VOLUME 98.4 fL (80-100); MEAN CORPUSCULAR HEMOGLOBIN 32.1 pg (25-34); MEAN CORPUSCULAR HGB CONC 32.6 g/dl (32-36); MEAN PLATELET VOLUME 10.6 fL (7.4-10.4); MONO % 7.1 %; MONO ABS # 0.65 K/uL (0.11-0.59); NEUT % 67.1 %; NEUT ABS # 6.13 K/uL (1.4-6.5); PLATELET COUNT 174 K/uL (130-400); RED CELL DISTRIBUTION WIDTH CV 12.9 % (11.5-14.5); RED CELL DISTRIBUTION WIDTH SD 46.4 fL (36.4-46.3); WHITE BLOOD COUNT 9.15 K/uL (4.8-10.8)
[2017-10-25 14:00] LABS: ALBUMIN 3.4 gm/dl (3.4-5.0); ALKALINE PHOSPHATASE 66 U/L (45-117); ALT/SGPT 16 U/L (12-78); AST/SGOT 19 U/L (15-37); BLOOD UREA NITROGEN 25 mg/dl (7-18); CALCIUM 9.7 mg/dl (8.5-10.1); CARBON DIOXIDE 33 mmol/L (21-32); CREATININE 1.33 mg/dl (0.60-1.20); GLUCOSE 157 mg/dl (70-99); POTASSIUM 3.6 mmol/L (3.5-5.1); SODIUM 140 mmol/L (136-145)
[2017-10-25] MEDS ORDERED: LIDOCAINE/EPINEPH/TETRACAINE 1 EA SYR EXT STA (14:32)
--- NOTE | 2017-10-25 14:37 | DIAGNOSTIC IMAGING REPORT ---
HEAD CT NONCONTRAST CT DOSE: 690.05 mGycm HISTORY: fall on coumadin TECHNIQUE: Multiaxial CT images of the head were performed without the use of intravenous contrast. Automated exposure control was utilized for this study. A dose lowering technique was utilized adhering to the principles of ALARA. Comparison: Head CT 05/09/2017. Findings: Complete opacification of the left maxillary sinus, unchanged. The mastoid air cells are clear. The calvarium and skull base are intact. There is no mass, hematoma, midline shift, acute infarct. White matter hypodensity is nonspecific but suggestive of microvascular ischemic change. The ventricles and sulci demonstrate mild age-related involutional changes. Impression: No significant change compared to the prior study. No acute intracranial abnormality. Electronically signed by: Joaquin Alarcon M.D. 10/25/2017 2:35 PM Dictated Date/Time: 10/25/2017 2:24 PM
--- NOTE | 2017-10-25 14:54 | DIAGNOSTIC IMAGING REPORT ---
CT OF THE CERVICAL SPINE CLINICAL HISTORY: Neck pain status post trauma COMPARISON STUDY: July 29, 2015 CT DOSE: 378.76 mGycm TECHNIQUE: CT scan of the cervical spine was performed from the skull base to the thoracic inlet. Images are reviewed in the axial, sagittal, and coronal planes. IV contrast was not administered for this examination. A dose lowering technique was utilized adhering to the principles of ALARA. FINDINGS: The visualized portions of the lung apices reveal no evidence of pneumothorax. There is mild prevertebral soft tissue edema at the C2 level. There is an oblique C2 fracture extending through the odontoid and lateral C2 mass. There is no subluxation. There are advanced multilevel degenerative changes. There is suspected spinal stenosis at the C7-T1 level. IMPRESSION: 1. Acute oblique odontoid fracture involving the left C2 body, and left C1-2 articulating facet. This is a type III fracture. Electronically signed by: Harry Eisenberg M.D. 10/25/2017 2:52 PM Dictated Date/Time: 10/25/2017 2:43 PM
--- NOTE | 2017-10-25 15:25 | EMERGENCY ROOM VISIT NOTE ---
ED Visit Note First contact with patient: 15:10 Dr. Godoy requested that I evaluate the patient for scalp laceration repair. Please see his documentation for full exam and visit details. PROCEDURE NOTE: I examined the patient. Verbal consent was obtained to perform the procedure. Using sterile technique the wound was cleaned with Betadine. The area was sterilely draped. LET gel was used to anesthetize the patient's scalp. Once the patient was numb, the wound was copiously irrigated under pressure with sterile saline. The wound was explored and there were no deep structures present. The laceration was noted to be 1.5 cm in length. The laceration was repaired using 2 marylou with the wound edges being well approximated. The patient tolerated the procedure well with no known complications and hemostasis was achieved. The area was cleaned with sterile saline and dressed with bacitracin ointment.
[2017-10-25] MEDS ORDERED: OPTIRAY 320 IV PRN (16:45)
--- NOTE | 2017-10-25 18:34 | DIAGNOSTIC IMAGING REPORT ---
CT ANGIOGRAPHY OF THE CHEST, PULMONARY EMBOLUS PROTOCOL CLINICAL HISTORY: Hypoxia. Fall. COMPARISON STUDY: Chest CT February 11, 2013 and chest radiograph performed earlier today. TECHNIQUE: Following IV administration of 84 mL of Optiray-320, helical axial images of the chest were obtained utilizing the pulmonary embolus protocol. Maximal intensity projections and sagittal and coronal reformats were viewed on an independent 3D workstation. IV contrast was administered without complication. A dose lowering technique was utilized adhering to the principles of ALARA. CT DOSE: 457.43 mGy.cm FINDINGS: No pulmonary emboli are identified although the segmental and subsegmental pulmonary arteries are suboptimally assessed due to respiratory motion artifact. The heart is mildly enlarged. There is no pericardial effusion. No enlarged thoracic lymph nodes are present. The patient is status post right mastectomy. Central airways are patent. Lungs are suboptimally assessed due to respiratory motion. A 5 mm left upper lobe nodule shown on image 148 of [address] of February 11, 2013. This is benign. Left lower lobe groundglass opacity favors atelectasis. No pneumothorax or pleural effusion is noted. There is no pneumomediastinum. No acute rib or thoracic spine fracture is identified. A 2.5 cm left adrenal nodule has mildly increased in size since CT of February 11, 2013. This is likely benign given relative stability. Apparent increased attenuation within this nodule may be artifactual. This favors an adenoma. IMPRESSION: 1. No pulmonary emboli identified although segmental and subsegmental pulmonary arteries suboptimally assessed due to respiratory motion artifact. 2. Scattered groundglass opacities, most pronounced within the left lower lobe. Atelectasis is favored although a mild infectious process could appear similar. 3. 2.5 cm left adrenal nodule which is likely benign given relative stability since CT of February 11, 2013. Electronically signed by: Warner Villalta M.D. 10/25/2017 6:33 PM Dictated Date/Time: 10/25/2017 6:22 PM
[2017-10-25] MEDS ORDERED: ACETAMINOPHEN 500 MG TAB PO STA (18:39)
[2017-10-25 19:19] VITALS: BP 171/65; PULSE 81; O2SAT 95
--- NOTE | 2017-10-25 19:55 | EMERGENCY ROOM VISIT NOTE ---
History Report prepared by Simba: Tiffany Ortiz Under the Supervision of: Dr. Arnoldo Godoy D.O. First contact with patient: 13:00 Chief Complaint: HEAD INJURY (MINOR) Stated Complaint: FELL HIT HEAD, NECK History of Present Illness The patient is a 86 year old female who presents to the Emergency Room with complaints of an episode of a head injury that onset today. The patient notes that she fell due to dizziness that onset 4 years ago. She notes that she fell sideways and hit the door-jam. The patient notes that she did not pass out. The patient complains of head pain, pain in her left shoulder, and neck pain. The patient denies headache. She states that she takes blood thinners. Patient notes that she always has left chest wall pain and this is not new. Last tetanus shot he believes was within the past 10 years. Source of History: patient Onset: today Position: head Timing: other (episode) Associated Symptoms: + neck pain, No LOC, No headache Note: The patient complains of left shoulder pain. Review of Systems See HPI for pertinent positives & negatives. A total of 10 systems reviewed and were otherwise negative. Past Medical & Surgical Medical Problems: (1) Diabetes (2) H/O hip replacement Surgical Problems: (1) H/O shoulder replacement (2) History of back surgery Family History Cancer Diabetes mellitus Heart disease Social History Smoking Status: Never Smoker Alcohol Use: none Drug Use: none Marital Status: Housing Status: lives with family Occupation Status: retired Current/Historical Medications Scheduled Acetaminophen (Tylenol), 1,000 MG PO HS Carbidopa/Levodopa (Sinemet 25MG/100MG), 0.5 TAB PO TID Cholecalciferol (Vitamin D3), 1 TAB PO DAILY Cyanocobalamin (Vitamin B-12), 1,000 MCG PO DAILY Dorzolamide Hcl-Timolol Maleat (Cosopt Oph), 1 DROPS OP QD Fish Oil (Attica-3), 1 CAP PO DAILY Insulin Glargine (Lantus Solostar), 36 UNITS SC QAM Insulin Glargine (Lantus Solostar), 22 UNITS SC QPM Insulin Human Lispro (Humalog Kwikpen), AC Levothyroxine Sodium (Levothyroxine Sodium), 1 TAB PO DAILY Pantoprazole (Protonix), 40 MG PO DAILY Senna (Senokot), 1 TAB PO DAILY Torsemide (Demadex), 1-2 TAB PO DAILY Warfarin Sodium (Warfarin Sodium), 4 MG PO 4XWK [calcium/mag], 2 DAILY [oxbutynin chloride], 10 MG PO DAILY Scheduled PRN Fluticasone Propionate (Nasal) (Flonase Allergy Relief), 2 SPRAYS MARIEL QD PRN for . Tramadol (Ultram), 50 MG PO DAILY PRN for Pain Miscellaneous Medications Biotin (Biotin) Lidocaine HCl (Aspercreme Lidocaine) Allergies Coded Allergies: Atorvastatin (Verified Allergy, Unknown, RASH, 10/25/17) Ezetimibe (Verified Allergy, Unknown, RASH, 10/25/17) Fluoxetine (Verified Allergy, Unknown, RASH, 10/25/17) Simvastatin (Verified Allergy, Unknown, RASH, 10/25/17) Sulfa Drugs (Verified Allergy, Unknown, HAS TAKEN LASIX BEFORE, 10/25/17) Oxycodone (Verified Adverse Reaction, Intermediate, PAIN MED-?OXYCONTIN- WENT CRAZY,BAD DREAMS, 10/25/17) Physical Exam Vital Signs Date Time Temp Pulse Resp B/P (MAP) Pulse Ox O2 Delivery O2 Flow Rate FiO2 10/25/17 19:19 81 18 171/65 95 10/25/17 17:10 79 18 158/65 95 Room Air 10/25/17 15:14 78 18 170/80 94 Room Air 10/25/17 12:44 36.8 77 20 150/62 97 Room Air Physical Exam GENERAL: alert, well appearing, well nourished, no distress, non-toxic HEAD: normal cephalic, 2.5 cm laceration on the right occipital region. EYE EXAM: normal conjunctiva, PERRL and EOM's grossly intact OROPHARYNX: no exudate, no erythema, lips, buccal mucosa, and tongue normal and mucous membranes are moist EARS: TMs clear b/l NECK: supple, no nuchal rigidity, no adenopathy, mild midline cervical spinal tenderness CHEST: per patient and family left chest wall is always tender LUNGS: clear to auscultation. Normal chest wall mechanics HEART: no murmurs, S1 normal and S2 normal ABDOMEN: abdomen soft, non-tender, normo-active bowel sounds, no masses, no rebound or guarding. PELVIS: stable to compression anteriorly and posteriorly BACK: Back is symmetrical on inspection and there is no deformity, no midline tenderness, no CVA tenderness. UPPER EXTREMITIES: full active and passive range of motion of all joints without tenderness to palpation LOWER EXTREMITIES: full active and passive range of motion of all joints without tenderness to palpation NEURO EXAM: Normal sensorium, cranial nerves II-XII grossly intact, normal speech, no gross weakness of arms, no gross weakness of legs. GCS: 15. Medical Decision & Procedures ER Provider Diagnostic Interpretation: Radiology results as stated below per my review and the radiologist's interpretation: HEAD CT NONCONTRAST CT DOSE: 690.05 mGycm HISTORY: fall on coumadin TECHNIQUE: Multiaxial CT images of the head were performed without the use of intravenous contrast. Automated exposure control was utilized for this study. A dose lowering technique was utilized adhering to the principles of ALARA. Comparison: Head CT 05/09/2017. Findings: Complete opacification of the left maxillary sinus, unchanged. The mastoid air cells are clear. The calvarium and skull base are intact. There is no mass, hematoma, midline shift, acute infarct. White matter hypodensity is nonspecific but suggestive of microvascular ischemic change. The ventricles and sulci demonstrate mild age-related involutional changes. Impression: No significant change compared to the prior study. No acute intracranial abnormality. Electronically signed by: Joaquin Alarcon M.D. 10/25/2017 2:35 PM Dictated Date/Time: 10/25/2017 2:24 PM CHEST ONE VIEW PORTABLE HISTORY: fall COMPARISON: Chest 05/09/2017 FINDINGS: Chronic interstitial thickening, unchanged. There are low lung volumes. The heart is normal in size. No focal lung consolidations to suggest pneumonia. No evidence for pulmonary edema. There is a right shoulder prosthesis. IMPRESSION: No significant change compared to the prior study. No acute process. Stable chronic interstitial thickening. Electronically signed by: Joaquin Alarcon M.D. 10/25/2017 1:21 PM Dictated Date/Time: 10/25/2017 1:[address] OF THE CERVICAL SPINE CLINICAL HISTORY: Neck pain status post trauma COMPARISON STUDY: July 29, 2015 CT DOSE: 378.76 mGycm TECHNIQUE: CT scan of the cervical spine was performed from the skull base to the thoracic inlet. Images are reviewed in the axial, sagittal, and coronal planes. IV contrast was not administered for this examination. A dose lowering technique was utilized adhering to the principles of ALARA. FINDINGS: The visualized portions of the lung apices reveal no evidence of pneumothorax. There is mild prevertebral soft tissue edema at the C2 level. There is an oblique C2 fracture extending through the odontoid and lateral C2 mass. There is no subluxation. There are advanced multilevel degenerative changes. There is suspected spinal stenosis at the C7-T1 level. IMPRESSION: 1. Acute oblique odontoid fracture involving the left C2 body, and left C1-2 articulating facet. This is a type III fracture. Electronically signed by: Harry Eisenberg M.D. 10/25/2017 2:52 PM Dictated Date/Time: 10/25/2017 2:[address] ANGIOGRAPHY OF THE CHEST, PULMONARY EMBOLUS PROTOCOL CLINICAL HISTORY: Hypoxia. Fall. COMPARISON STUDY: Chest CT February 11, 2013 and chest radiograph performed earlier today. TECHNIQUE: Following IV administration of 84 mL of Optiray-320, helical axial images of the chest were obtained utilizing the pulmonary embolus protocol. Maximal intensity projections and sagittal and coronal reformats were viewed on an independent 3D workstation. IV contrast was administered without complication. A dose lowering technique was utilized adhering to the principles of ALARA. CT DOSE: 457.43 mGy.cm FINDINGS: No pulmonary emboli are identified although the segmental and subsegmental pulmonary arteries are suboptimally assessed due to respiratory motion artifact. The heart is mildly enlarged. There is no pericardial effusion. No enlarged thoracic lymph nodes are present. The patient is status post right mastectomy. Central airways are patent. Lungs are suboptimally assessed due to respiratory motion. A 5 mm left upper lobe nodule shown on image 148 of [address] of February 11, 2013. This is benign. Left lower lobe groundglass opacity favors atelectasis. No pneumothorax or pleural effusion is noted. There is no pneumomediastinum. No acute rib or thoracic spine fracture is identified. A 2.5 cm left adrenal nodule has mildly increased in size since CT of February 11, 2013. This is likely benign given relative stability. Apparent increased attenuation within this nodule may be artifactual. This favors an adenoma. IMPRESSION: 1. No pulmonary emboli identified although segmental and subsegmental pulmonary arteries suboptimally assessed due to respiratory motion artifact. 2. Scattered groundglass opacities, most pronounced within the left lower lobe. Atelectasis is favored although a mild infectious process could appear similar. 3. 2.5 cm left adrenal nodule which is likely benign given relative stability since CT of February 11, 2013. Electronically signed by: Warner Villalta M.D. 10/25/2017 6:33 PM Dictated Date/Time: 10/25/2017 6:22 PM Laboratory Results 10/25/17 13:33 Red Blood Count 4.36, Mean Corpuscular Volume 98.4, Mean Corpuscular Hemoglobin 32.1, Mean Corpuscular Hemoglobin Concent 32.6, Mean Platelet Volume 10.6, Neutrophils (%) (Auto) 67.1, Lymphocytes (%) (Auto) 24.7, Monocytes (%) (Auto) 7.1, Eosinophils (%) (Auto) 0.5, Basophils (%) (Auto) 0.2, Neutrophils # (Auto) 6.13, Lymphocytes # (Auto) 2.26, Monocytes # (Auto) 0.65, Eosinophils # (Auto) 0.05, Basophils # (Auto) 0.02 10/25/17 13:33 Test 10/25/17 13:33 White Blood Count 9.15 K/uL (4.8-10.8) Red Blood Count 4.36 M/uL (4.2-5.4) Hemoglobin 14.0 g/dL (12.0-16.0) Hematocrit 42.9 % (37-47) Mean Corpuscular Volume 98.4 fL (80-100) Mean Corpuscular Hemoglobin 32.1 pg (25-34) Mean Corpuscular Hemoglobin Concent 32.6 g/dl (32-36) Platelet Count 174 K/uL (130-400) Mean Platelet Volume 10.6 fL (7.4-10.4) Neutrophils (%) (Auto) 67.1 % Lymphocytes (%) (Auto) 24.7 % Monocytes (%) (Auto) 7.1 % Eosinophils (%) (Auto) 0.5 % Basophils (%) (Auto) 0.2 % Neutrophils # (Auto) 6.13 K/uL (1.4-6.5) Lymphocytes # (Auto) 2.26 K/uL (1.2-3.4) Monocytes # (Auto) 0.65 K/uL (0.11-0.59) Eosinophils # (Auto) 0.05 K/uL (0-0.5) Basophils # (Auto) 0.02 K/uL (0-0.2) RDW Standard Deviation 46.4 fL (36.4-46.3) RDW Coefficient of Variation 12.9 % (11.5-14.5) Immature Granulocyte % (Auto) 0.4 % Immature Granulocyte # (Auto) 0.04 K/uL (0.00-0.02) Prothrombin Time 21.2 SECONDS (9.0-12.0) Prothromb Time International Ratio 2.0 (0.9-1.1) Anion Gap 10.0 mmol/L (3-11) Estimated GFR () 41.3 Estimated GFR (Non- 35.6 BUN/Creatinine Ratio 18.4 (10-20) Calcium Level 9.7 mg/dl (8.5-10.1) Total Bilirubin 0.4 mg/dl (0.2-1) Direct Bilirubin 0.1 mg/dl (0-0.2) Aspartate Amino Transf (AST/SGOT) 19 U/L (15-37) Alanine Aminotransferase (ALT/SGPT) 16 U/L (12-78) Alkaline Phosphatase 66 U/L (45-117) Total Protein 7.0 gm/dl (6.4-8.2) Albumin 3.4 gm/dl (3.4-5.0) Laboratory results per my review. Medications Administered Medications (Trade) Dose Ordered Sig/Mitali Route Start Time Stop Time Status Last Admin Dose Admin Tetracaine/ Epinephrine/ Lidocaine (L.e.t. Gel 4%/ 1:100/0.5%) 1 ea NOW STAT EXT 10/25/17 14:32 10/25/17 14:33 DC 10/25/17 15:12 1 EA Acetaminophen (Tylenol Tab) 1,000 mg NOW STAT PO 10/25/17 18:39 10/25/17 18:40 DC 10/25/17 19:02 1,000 MG ED Course ED COURSE: Vital signs were reviewed and showed hypertension situationally. The patients medical record was reviewed The above diagnostic studies were performed and reviewed. While in the ED the patient received Tetracaine/Epinephrine/Lidocaine 1 ea EXT , Ioversol 100 ml IV. ED treatments and interventions as stated above. 1258: The patient was evaluated in room A03. A complete history and physical examination was performed. 1545: I reviewed the patient's case with Dr. Hall- [facility]. He reviews the images and said that the patient can be placed in [place] and discharged. 1555: Upon reevaluation, the patient is resting comfortably. I discussed my findings with the patient and she understands and agrees with the treatment plan. Based on the patients age, coexisting illnesses, exam and lab findings the decision to treat as an outpatient was made. The patient remained stable while under my care. The patient appeared well at the time of discharge. Medical Decision Differential diagnosis: Etiologies such as fracture, dislocation, intra-abdominal, pneumothorax, intrathoracic , intracranial, neurologic, as well as other traumatic pathologies were entertained. Patient is an 86-year-old female who presents the ER for mechanical fall where she hit her head. She is complaining of head and neck pain. 2.5 cm laceration on her right occiput. She does have minimal left chest wall pain but notes that this is all old. She does take a blood thinner. Labs including CBC and BMP were were unremarkable. LFTs, bilirubin were normal. INR was elevated at 2. CT of the head and cervical spine show an odontoid type III fracture. Chest x-ray and CTA of the chest are unremarkable with exception of an old adrenal mass. Discuss with her orthopedic spine surgeon Dr. Hall. He reviewed the images of her cervical spine. He believes this can be followed up as an outpatient as she is neurologically intact. No new numbness or weakness. [place] to be removed and 710 days. Patient was placed in a [facility] discharged follow-up with orthopedic spine as an outpatient. Discussed with Pt concerning signs and symptoms to watch out for. Pt was instructed to follow up with their PCP and discussed with the patient their option to return to the ED at anytime for persistent or worsening symptoms. The appropriate anticipatory guidance and out-patient management, including indications for return to the emergency department, were explained at length to the patient and understood. Medication Reconcilliation Current Medication List: was personally reviewed by me Blood Pressure Screening Patient's blood pressure: Elevated blood pressure Blood pressure disposition: Elevated BP felt to be situational Impression Primary Impression: Odontoid fracture Additional Impression: Scalp laceration Scribe Attestation The scribe's documentation has been prepared under my direction and personally reviewed by me in its entirety. I confirm that the note above accurately reflects all work, treatment, procedures, and medical decision making performed by me. Departure Information Dispostion Home / Self-Care Referrals René French M.D. (PCP) Forms HOME CARE DOCUMENTATION FORM, IMPORTANT VISIT INFORMATION Patient Instructions My [facility] Additional Instructions Please follow up with your primary care doctor with in the next 24 hours. Any worsening of your symptoms, please return to the ED immediately. This includes any fevers greater than 100.4, weakness or numbness in her arms or legs, worsening pain, chest pain, shortness breath, persistent nausea, vomiting, unable to eat or drink, or any other concerning signs or symptoms from your standpoint. Please take Tylenol or Motrin as needed for pain. Please make sure that you follow-up with orthopedics within the next 2 days. Please wear cervical collar at all times. Problem Qualifiers Primary Impression: Odontoid fracture Encounter type: initial encounter Fracture type: closed Qualified Codes: S12.100A - Unspecified displaced fracture of second cervical vertebra, initial encounter for closed fracture Additional Impression: Scalp laceration Encounter type: initial encounter Qualified Codes: S01.01XA - Laceration without foreign body of scalp, initial encounter
== END 2017-10-25 19:21 | disposition home or self-care (01) ==
LOC: C.EDB 12:43 → C.EDA 19:21
DX: S01.01XA Laceration without foreign body of scalp, initial encounter (principal); S12.100A Unspecified displaced fracture of second cervical vertebra, initial encounter for closed fracture; W01.198A Fall on same level from slipping, tripping and stumbling with subsequent striking against other object, initial encounter; E11.9 Type 2 diabetes mellitus without complications; Z96.649 Presence of unspecified artificial hip joint; Z80.9 Family history of malignant neoplasm, unspecified; Z83.3 Family history of diabetes mellitus; Z79.4 Long term (current) use of insulin; Z79.01 Long term (current) use of anticoagulants; Z88.2 Allergy status to sulfonamides; Z88.5 Allergy status to narcotic agent; Z88.8 Allergy status to other drugs, medicaments and biological substances

== ENCOUNTER 2018-11-01 17:03 | Inpatient (IN) ==
[2018-11-01] MEDS ORDERED: ALBUT/IPRATROP 3MG/0.5MG NEB 3 ML VIAL NEB STA ×2 (17:38→21:08)
[2018-11-01 18:11] LABS: Basophils # (auto) 0.02 K/uL (0-0.2); Basophils % (auto) 0.3 %; Eosinophils # (auto) 0.09 K/uL (0-0.5); Eosinophils % (auto) 1.4 %; Hematocrit (blood only) 44.2 % (37-47); Hemoglobin 14.2 g/dL (12.0-16.0); Immature Granulocytes # (auto) 0.03 K/uL (0.00-0.02); Immature Granulocytes % (auto) 0.5 %; Lymphocytes # (auto) 1.57 K/uL (1.2-3.4); Lymphocytes % (auto) 23.9 %; Mean Corpuscular Hemoglobin 32.7 pg (25-34); Mean Corpuscular Hgb Conc 32.1 g/dL (32-36); Mean Corpuscular Volume 101.8 fL (80-100); Mean Platelet Volume 10.6 fL (7.4-10.4); Monocytes # (auto) 0.97 K/uL (0.11-0.59); Monocytes % (auto) 14.8 %; Neutrophils # (auto) 3.89 K/uL (1.4-6.5); Neutrophils % (auto) 59.1 %; Platelet Count 171 K/uL (130-400); RDW Coefficient of Variation 13.2 % (11.5-14.5); RDW Standard Deviation 49.5 fL (36.4-46.3); Red Blood Count 4.34 M/uL (4.2-5.4); White Blood Count 6.57 K/uL (4.8-10.8)
[2018-11-01 18:23] LABS: INR 2.1 (0.9-1.1); Partial Thromboplastin Ratio 1.3; Partial Thromboplastin Time 36.3 Seconds (21.0-31.0); Prothrombin Time 20.8 Seconds (9.0-12.0)
[2018-11-01 18:27] LABS: Alanine Aminotransferase 15 U/L (12-78); Albumin Level 3.2 gm/dl (3.4-5.0); Aspartate Aminotransferase 25 U/L (15-37); BUN Creatinine Ratio 16.1 (10-20); Blood Urea Nitrogen 23 mg/dl (7-18); Calcium 9.3 mg/dl (8.5-10.1); Carbon Dioxide 35 mmol/L (21-32); Chloride 99 mmol/L (98-107); Creatinine Clr Calc Pharmacy 27.3 ml/min; Est GFR (African American) 38.5; Est GFR (Non-African American) 33.2; Glucose 150 mg/dl (70-99); Potassium 4.1 mmol/L (3.5-5.1); Sodium 141 mmol/L (136-145)
[2018-11-01 18:32] LABS: Albumin Globulin Ratio 0.8 (0.9-2); Alkaline Phosphatase 69 U/L (45-117); Bilirubin,Total 0.3 mg/dl (0.2-1); Globulin 3.8 gm/dl (2.5-4.0); NT Pro B Type Natriuretic Pept 321 pg/ml (0-1800); Troponin I < 0.015 ng/ml (0-0.045)
--- NOTE | 2018-11-01 18:46 | XRay Report ---
XR chest 2V routine HISTORY: 87 years-old Female Dyspnea acute shortness of breath COMPARISON: Chest radiograph 09/09/2018, CTA chest 10/25/2017 TECHNIQUE: PA and lateral views of the chest FINDINGS: Cardiac silhouette is enlarged, unchanged. Chronic mild right hemidiaphragmatic elevation. Pulmonary vascular congestion with mild interstitial coarsening. Trace fluid layers along the right minor fissu re. Trace pleural effusions. Right shoulder arthroplasty. Partially imaged fusion hardware of the lum bar spine. Degenerative changes of the shoulders and spine. IMPRESSION: 1. Cardiomegaly with suggestion of mild pulmonary edema. 2. Trace pleural effusions. The above report was generated using voice recognition software. It may contain grammatical, syntax o r spelling errors. Electronically signed by: Bala Noe M.D. 11/01/2018 6:45 PM
--- NOTE | 2018-11-01 19:49 | CT Scan Report ---
CT chest wo con CT DOSE: 675.07 mGy.cm CLINICAL HISTORY: 87 years-old Female with sob, hypoxia. Acute shortness of breath TECHNIQUE: Multiaxial CT images of the chest were performed without contrast. A dose lowering techni que was utilized adhering to the principles of ALARA. COMPARISON: CTA of the chest 10/25/2017, 02/11/2013 FINDINGS: Heterogeneous thyroid. There is no adenopathy by CT size criteria. Study is limited secondary to posi tioning of the patient's upper extremities and lack of IV contrast. Mild cardiomegaly with coronary a rterial calcifications. No thoracic aortic aneurysm. No pneumothorax or pleural effusion. Chronic per ihilar and bibasilar opacities are suggestive of areas of mild fibrosis with mild subsegmental bibasi lar atelectasis. 5 mm solid nodule of the left upper lobe, image 93 series 4 appears unchanged dating back to 2012 suggestive of benign etiology. Mild mucous plugging about the basal left lower lobe on image 200 series 4. Central airways appear patent. No lobar airspace consolidations suggest pneumonia . No overt pulmonary edema. 2.5 cm lesion of the left adrenal gland is unchanged from 2013 suggestive of benign etiology. Chronic right hemidiaphragmatic elevation. Chronic appearance of the left breast with vascular calcification s. Degenerative changes of the spine and shoulders. Right shoulder arthroplasty. No acute fracture. IMPRESSION: 1. Cardiomegaly without evidence of pulmonary edema. 2. Bibasilar reticular and groundglass opacities are suggestive of atelectasis/fibrotic change. No de finite evidence of pneumonia. 3. No pleural effusion or adenopathy. Electronically signed by: Bala Noe M.D. 11/01/2018 7:47 PM
[2018-11-01] MEDS ORDERED: cefTRIAXone SODIUM 2,000 MG/70 ML BAG IV STA (21:08)
[2018-11-01] MEDS ORDERED: DOXYCYCLINE HYCLATE 100 MG CAP PO STA (21:08)
--- NOTE | 2018-11-01 22:30 | Emergency Department Note ---
Entered by Hailee Herring acting as a scribe for History of Present Illness General Chief complaint: Illness Stated complaint: COUGH, COLD, HYPOXIA Source: patient Mode of arrival: wheelchair Limitations: no limitations History of Present Illness Onset (ago): day(s) 2 Radiation: non-radiation Pain Consistency: + constant Maximum Pain Intensity: 7 Current Pain Intensity: 7 Relieved By: + none Exacerbated By: + none Associated symptoms: + cough, + fever/chills, + shortness of breath and + other (+sore throat, +clear rhinorrhea) Treatments prior to arrival: none The patient is an 87 year old female who presents to the ED with complaints of a persistent illness. She states she was fine until 2 days ago, when she developed a cough and fever. She rates her discomfort as a 7/10 in severity. The cough has been non-productive. She admits to a sore throat and some clear rhinorrhea. She denies any new swelling in her legs. She has been short of breath and states her breathing is worsened by any exertion. Oxygen has provided some relief and she notes she is not normally on O2 via Nasal Canula. The patient is on daily blood thinners and states her most recent INR was 2.5. Home Medications Home Medications Medication Instructions Recorded Confirmed Type insulin glargine [Basaglar KwikPen 20 unit SUBCUT QPM 09/09/18 11/01/18 History U-100 Insulin] cholecalciferol (vitamin D3) 5,000 5,000 unit PO DAILY #90 tab 10/13/18 11/01/18 Rx unit tablet cyanocobalamin (vit B-12) 1,000 1,000 mcg PO DAILY #90 tab 10/13/18 11/01/18 Rx mcg tablet insulin aspart (U-100) 100 unit/mL 15 units SUBCUT TIDM #15 ml 10/13/18 11/01/18 Rx (3 mL) subcutaneous pen sennosides 8.6 mg-docusate sodium 1 tab PO HS PRN #90 tab 10/13/18 11/01/18 Rx 50 mg tablet torsemide 20 mg tablet 20 - 40 mg PO DAILY #90 tab 10/13/18 11/01/18 Rx tramadol 50 mg tablet 100 mg PO BID PRN #120 tab 10/13/18 11/01/18 Rx latanoprost 0.005 % eye drops 1 drp OPHTHALMIC (EYE) .COMPLEX #0 10/24/18 11/01/18 Rx ml insulin glargine [Basaglar KwikPen 35 unit SUBCUT QAM 11/01/18 11/01/18 History U-100 Insulin] warfarin 4 mg PO SUTUTHSA 11/01/18 11/01/18 History warfarin 6 mg PO MOWEFR 11/01/18 11/01/18 History Allergies Allergy/AdvReac Type Severity Reaction Status Date / Time atorvastatin Allergy Unknown RASH Verified 11/01/18 17:44 ezetimibe Allergy Unknown RASH Verified 11/01/18 17:44 fluoxetine Allergy Unknown RASH Verified 11/01/18 17:44 simvastatin Allergy Unknown RASH Verified 11/01/18 17:44 Sulfa (Sulfonamide Allergy Unknown HAS TAKEN Verified 11/01/18 17:44 Antibiotics) LASIX BEFORE acetaminophen [From Tylox] Allergy Verified 11/01/18 17:44 oxycodone AdvReac Intermediate PAIN Verified 11/01/18 17:44 MED-?OXYCONTIN- WENT CRAZY,BAD DREAMS Past Med/Surg History Medical History Diabetes (Chronic) 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 (Acute) CKD (chronic kidney disease) DVT (deep venous thrombosis) Hypertension Surgical History H/O colonoscopy H/O shoulder replacement History of appendectomy History of breast surgery History of cataract surgery History of total hip replacement Hx of cholecystectomy S/P total knee arthroplasty Family History Unknown Coronary heart disease Diabetes FHx: allergies Father FH: deafness or hearing loss Asthma Brother FH: deafness or hearing loss Cancer Sister Breast cancer Social History Preferred Language: Sinhala Feels Safe at Home: Yes Smoking Status: Never smoker Review of Systems See HPI for pertinent positives & negatives. and A total of 10 systems reviewed and were otherwise negative Physical Exam Vital Signs Vital Signs - 24 hr 11/01/18 17:06 11/01/18 17:26 11/01/18 17:31 Temperature 36.9 C Temperature Source Oral Sepsis Recent Fever Within 48 Hours No Sepsis New/Unexplained Change in Mental Status No Sepsis Action Taken by Nursing No Action Required Pulse Rate 98 H 87 Pulse Rate [Right Radial] Pulse Rate from SpO2 Sensor 87 Pulse Rhythm Regular Pulse Strength Normal Respiratory Rate 22 26 H Respiratory Effort / Characteristics Non-Labored Spontaneous Respiratory Depth Normal Respiratory Pattern Regular Blood Pressure 163/78 H 117/55 L Blood Pressure [Left Arm] Blood Pressure Mean 106 75 Blood Pressure Mean [Left Arm] Blood Pressure Position Sitting Pulse Oximetry 86 L 95 95 Oxygen Delivery Method Room Air Nasal Cannula Nasal Cannula Oxygen Flow Rate 3 3 11/01/18 17:32 11/01/18 17:40 11/01/18 17:50 Temperature Temperature Source Sepsis Recent Fever Within 48 Hours Sepsis New/Unexplained Change in Mental Status Sepsis Action Taken by Nursing Pulse Rate 89 89 86 Pulse Rate [Right Radial] Pulse Rate from SpO2 Sensor 88 90 88 Pulse Rhythm Pulse Strength Respiratory Rate 16 22 18 Respiratory Effort / Characteristics Respiratory Depth Respiratory Pattern Blood Pressure Blood Pressure [Left Arm] Blood Pressure Mean Blood Pressure Mean [Left Arm] Blood Pressure Position Pulse Oximetry 96 94 94 Oxygen Delivery Method Nasal Cannula Nasal Cannula Nasal Cannula Oxygen Flow Rate 3 3 3 11/01/18 18:00 11/01/18 18:01 11/01/18 18:05 Temperature Temperature Source Sepsis Recent Fever Within 48 Hours Sepsis New/Unexplained Change in Mental Status Sepsis Action Taken by Nursing Pulse Rate 86 83 Pulse Rate [Right Radial] 83 Pulse Rate from SpO2 Sensor 87 83 Pulse Rhythm Pulse Strength Respiratory Rate 22 17 18 Respiratory Effort / Characteristics Non-Labored Spontaneous Respiratory Depth Respiratory Pattern Blood Pressure 166/93 H Blood Pressure [Left Arm] Blood Pressure Mean 117 Blood Pressure Mean [Left Arm] Blood Pressure Position Pulse Oximetry 93 93 94 Oxygen Delivery Method Nasal Cannula Nasal Cannula Nasal Cannula Oxygen Flow Rate 3 3 3 11/01/18 18:10 11/01/18 18:20 11/01/18 18:44 Temperature Temperature Source Sepsis Recent Fever Within 48 Hours Sepsis New/Unexplained Change in Mental Status Sepsis Action Taken by Nursing Pulse Rate 84 81 82 Pulse Rate [Right Radial] Pulse Rate from SpO2 Sensor 84 81 81 Pulse Rhythm Pulse Strength Respiratory Rate 16 19 20 Respiratory Effort / Characteristics Respiratory Depth Respiratory Pattern Blood Pressure Blood Pressure [Left Arm] Blood Pressure Mean Blood Pressure Mean [Left Arm] Blood Pressure Position Pulse Oximetry 98 95 96 Oxygen Delivery Method Nasal Cannula Nasal Cannula Nasal Cannula Oxygen Flow Rate 3 3 3 11/01/18 18:50 11/01/18 19:00 11/01/18 19:10 Temperature Temperature Source Sepsis Recent Fever Within 48 Hours Sepsis New/Unexplained Change in Mental Status Sepsis Action Taken by Nursing Pulse Rate 81 87 79 Pulse Rate [Right Radial] Pulse Rate from SpO2 Sensor 81 87 80 Pulse Rhythm Pulse Strength Respiratory Rate 20 23 21 Respiratory Effort / Characteristics Respiratory Depth Respiratory Pattern Blood Pressure Blood Pressure [Left Arm] Blood Pressure Mean Blood Pressure Mean [Left Arm] Blood Pressure Position Pulse Oximetry 96 96 96 Oxygen Delivery Method Nasal Cannula Nasal Cannula Nasal Cannula Oxygen Flow Rate 3 3 3 11/01/18 19:37 11/01/18 20:33 11/01/18 20:51 Temperature Temperature Source Sepsis Recent Fever Within 48 Hours Sepsis New/Unexplained Change in Mental Status Sepsis Action Taken by Nursing Pulse Rate Pulse Rate [Right Radial] 80 82 Pulse Rate from SpO2 Sensor Pulse Rhythm Pulse Strength Respiratory Rate 18 24 Respiratory Effort / Characteristics Respiratory Depth Respiratory Pattern Blood Pressure Blood Pressure [Left Arm] 147/68 H 123/62 Blood Pressure Mean Blood Pressure Mean [Left Arm] 94 82 Blood Pressure Position Pulse Oximetry 97 80 L Oxygen Delivery Method Nasal Cannula Room Air Room Air Oxygen Flow Rate 3 11/01/18 20:52 11/01/18 21:34 11/01/18 21:51 Temperature Temperature Source Sepsis Recent Fever Within 48 Hours Sepsis New/Unexplained Change in Mental Status Sepsis Action Taken by Nursing Pulse Rate Pulse Rate [Right Radial] 83 80 Pulse Rate from SpO2 Sensor Pulse Rhythm Pulse Strength Respiratory Rate 16 19 Respiratory Effort / Characteristics Non-Labored Spontaneous Respiratory Depth Respiratory Pattern Blood Pressure Blood Pressure [Left Arm] Blood Pressure Mean Blood Pressure Mean [Left Arm] Blood Pressure Position Pulse Oximetry 98 96 96 Oxygen Delivery Method Nasal Cannula Nasal Cannula Nasal Cannula Oxygen Flow Rate 3 3 3 GENERAL: Awake, alert, fatigued-appearing, in no distress HENT: Normocephalic, atraumatic. EYES: Normal conjunctiva. Sclera non-icteric. NECK: Supple. No nuchal rigidity. RESPIRATORY: Expiratory wheeze, diminished lung sounds at the bases. Normal respiratory effort at rest. CARDIAC: Normal rate. Normal rhythm. Extremities warm and well perfused. GI: Soft, non-distended. No tenderness to palpation. No rebound or guarding. No masses. RECTAL: Deferred. MUSCULOSKELETAL: Atraumatic. Chest examination reveals no tenderness. LOWER EXTREMITIES: Calves are equal size bilaterally and non-tender. 2+ LE edema, chronic stasis changes with erythema. . NEURO: Normal sensorium. No sensory or motor deficits noted. No facial droop. SKIN: Warm and dry. No jaundice noted. Course 1732: The patient was evaluated in room A12 and a complete history and physical were performed. 2100: I reevaluated the patient. She is resting comfortably. I discussed her results and my recommendation she remain in the hospital for further evaluation and management and she verbalized complete understanding and agreement. 213: [facility] The patient will be further evaluated. Consultations Consultation #1: I discussed the patients case with Dr. Lee, [facility]. The patient will be further evaluated. Time: 21:35 Administered Medications Discontinued Medications Albuterol (Duoneb) 3 ml NEB NOW STA Stop: 11/01/18 17:39 Last Admin: 11/01/18 18:02 Dose: 3 ml Documented by: [id number] Albuterol (Duoneb) 3 ml NEB NOW STA Stop: 11/01/18 21:09 Last Admin: 11/01/18 21:32 Dose: 3 ml Documented by: [id number] Doxycycline Hyclate (Vibramycin) 100 mg PO NOW STA Stop: 11/01/18 21:09 Last Admin: 11/01/18 21:48 Dose: 100 mg Documented by: [id number] Ceftriaxone Sodium (Rocephin) 2,000 mg in 70 mls @ 140 mls/hr IV NOW STA Stop: 11/01/18 21:37 Last Infusion: 11/01/18 22:21 Dose: 0 mls/hr Documented by: [id number] Admin: 11/01/18 21:48 Dose: 140 mls/hr Documented by: [id number] Medical Decision Making Differential Diagnosis Differential diagnoses includes but is not limited to pneumonia, bronchitis, COPD/Asthma exacerbation, pneumothorax, pulmonary embolism, congestive heart failure, acute coronary syndrome Medical Records Attestation: I reviewed the patient's medical records. Home Medications Current Medication List: was personally reviewed by me Laboratory Data Attestation: I reviewed the patient's lab results. Result diagrams: 11/01/18 17:58 11/01/18 17:58 Lab Results 09/03/19 09/03/19 09/03/19 Range/Units 17:58 17:58 17:58 WBC 6.57 (4.8-10.8) K/uL RBC 4.34 (4.2-5.4) M/uL Hgb 14.2 (12.0-16.0) g/dL Hct 44.2 (37-47) % MCV 101.8 H (80-100) fL MCH 32.7 (25-34) pg MCHC 32.1 (32-36) g/dL RDW Std Deviation 49.5 H (36.4-46.3) fL RDW Coeff of Mari 13.2 (11.5-14.5) % Plt Count 171 (130-400) K/uL MPV 10.6 H (7.4-10.4) fL Immature Gran % (Auto) 0.5 % Neut % (Auto) 59.1 % Lymph % (Auto) 23.9 % [place] % (Auto) 14.8 % Eos % (Auto) 1.4 % Baso % (Auto) 0.3 % Immature Gran # (Auto) 0.03 H (0.00-0.02) K/uL Neut # (Auto) 3.89 (1.4-6.5) K/uL Lymph # (Auto) 1.57 (1.2-3.4) K/uL [place] # (Auto) 0.97 H (0.11-0.59) K/uL Eos # (Auto) 0.09 (0-0.5) K/uL Baso # (Auto) 0.02 (0-0.2) K/uL PT 20.8 H (9.0-12.0) Seconds INR 2.1 H (0.9-1.1) APTT 36.3 H (21.0-31.0) Seconds PTT Ratio 1.3 Sodium 141 (136-145) mmol/L Potassium 4.1 (3.5-5.1) mmol/L Chloride 99 (98-107) mmol/L Carbon Dioxide 35 H (21-32) mmol/L Anion Gap 7.0 (3-11) BUN 23 H (7-18) mg/dl Creatinine 1.40 H (0.6-1.2) mg/dl Est Cr Clr Drug Dosing 27.3 ml/min Est GFR ( Amer) 38.5 Est GFR (Non-Af Amer) 33.2 BUN/Creatinine Ratio 16.1 (10-20) Glucose 150 H (70-99) mg/dl Calcium 9.3 (8.5-10.1) mg/dl Magnesium 2.0 (1.8-2.4) mg/dl Total Bilirubin 0.3 (0.2-1) mg/dl AST 25 (15-37) U/L ALT 15 (12-78) U/L Alkaline Phosphatase 69 (45-117) U/L Troponin I < 0.015 (0-0.045) ng/ml NT-Pro-B Natriuret Pep 321 (0-1800) pg/ml Total Protein 7.0 (6.4-8.2) gm/dl Albumin 3.2 L (3.4-5.0) gm/dl Globulin 3.8 (2.5-4.0) gm/dl Albumin/Globulin Ratio 0.8 L (0.9-2) Imaging Data Radiologist's Impression: Radiology results as stated below per my review and the radiologist's interpretation: XR chest 2V routine HISTORY: 87 years-old Female Dyspnea acute shortness of breath COMPARISON: Chest radiograph 09/09/2018, CTA chest 10/25/2017 TECHNIQUE: PA and lateral views of the chest FINDINGS: Cardiac silhouette is enlarged, unchanged. Chronic mild right hemidiaphragmatic elevation. Pulmonary vascular congestion with mild interstitial coarsening. Trace fluid layers along the right minor fissure. Trace pleural effusions. Right shoulder arthroplasty. Partially imaged fusion hardware of the lumbar spine. Degenerative changes of the shoulders and spine. IMPRESSION: 1. Cardiomegaly with suggestion of mild pulmonary edema. 2. Trace pleural effusions. The above report was generated using voice recognition software. It may contain grammatical, syntax or spelling errors. Electronically signed by: Bala Noe M.D. 11/01/2018 6:[address] chest wo con CT DOSE: 675.07 mGy.cm CLINICAL HISTORY: 87 years-old Female with sob, hypoxia. Acute shortness of breath TECHNIQUE: Multiaxial CT images of the chest were performed without contrast. A dose lowering technique was utilized adhering to the principles of ALARA. COMPARISON: CTA of the chest 10/25/2017, 02/11/2013 FINDINGS: Heterogeneous thyroid. There is no adenopathy by CT size criteria. Study is limited secondary to positioning of the patient's upper extremities and lack of IV contrast. Mild cardiomegaly with coronary arterial calcifications. No thoracic aortic aneurysm. No pneumothorax or pleural effusion. Chronic perihilar and bibasilar opacities are suggestive of areas of mild fibrosis with mild subse gmental bibasilar atelectasis. 5 mm solid nodule of the left upper lobe, image 93 series 4 appears unchanged dating back to 2013 suggestive of benign etiology. Mild mucous plugging about the basal left lower lobe on image 200 series 4. Central airways appear patent. No lobar airspace consolidations suggest pneumonia. No overt pulmonary edema. 2.5 cm lesion of the left adrenal gland is unchanged from 2013 suggestive of benign etiology. Chronic right hemidiaphragmatic elevation. Chronic appearance of the left breast with vascular calcifications. Degenerative changes of the spine and shoulders. Right shoulder arthroplasty. No acute fracture. IMPRESSION: 1. Cardiomegaly without evidence of pulmonary edema. 2. Bibasilar reticular and groundglass opacities are suggestive of atelectasis/fibrotic change. No definite evidence of pneumonia. 3. No pleural effusion or adenopathy. Electronically signed by: Bala Noe M.D. 11/01/2018 7:47 PM ECG Data Attestation: I personally reviewed and interpreted this ECG as follows: Indication: SOB/dyspnea Rate (beats per minute): 83 Rhythm: normal sinus Findings: no PVC, no ST depression and no ST elevation Blood Pressure Blood Pressure Findings: Elevated blood pressure Blood Pressure Disposition: further management by hospitalist TREY Narrative Patient is a 87-year-old female with history of DVT on Coumadin, ANH, diabetes presenting today complaining of cough and shortness of breath with yellow mucus. Some pain with coughing. Hypoxic on room air. Distant history of bronchitis but states she has not had any recent breathing issues. Legs continue to be somewhat swollen and erythematous the patient states. Concerned that her hypoxic be related possible developing pneumonia versus fluid overload. Chest x-ray and basic labs were obtained. On Coumadin with therapeutic INR and doubt PE with this. Doubt dissection. EKG troponin completed but lower suspicion is acute ACS. Her legs appear chronically swollen unsure that they are acutely cellulitic today. Laboratory studies likely show no significant leukocytosis at this time. Kidney function appears near baseline. Negative troponin. proBNP not significantly elevated. X-ray question some trace effusions and may be some mild pulmonary edema but no yessenia infiltrate is noted. Due to some concerns about occult pneumonia given this CT of the chest was completed. CT without evidence of effusion or pulmonary edema per the radiologist interpretation. No large focal pneumonia is noted here. Again do not believe this represents fluid overload at this time. Due to some concerns that she may have a bronchitis situation developing. Off of oxygen patient maintained above 90% saturations and she wished at all possible to go home. Did have nursing perform a walking pulse ox test de sat to 80%. Discussed with patient's my concerns especially given her especially exertional hypoxia. Given that she was agreeable to stay. Given a dose of Rocephin and doxycycline. Additional DuoNeb given. Discussed with the hospitalist for admission for the treatment of her bronchitis and hypoxia. Impression & Plan Hypoxia, Shortness of breath, Bronchitis Discharge Plan Visit Data Chief Complaint: Illness Stated Complaint: COUGH, COLD, HYPOXIA ED Provider: Lex Resendiz Discharge Problem: Hypoxia, Shortness of breath, Bronchitis Patient Disposition: Being Evaluated by Hospitalist Forms Stand Alone Forms: My [facility] Prescriptions Prescriptions: No Action latanoprost [Xalatan] 0.005 % drops 1 drp ophthalmic (eye) .COMPLEX Qty: 0 RF: 0 cholecalciferol (vitamin D3) [Vitamin D3] 5,000 unit tablet 5,000 unit PO DAILY Qty: 90 RF: 3 cyanocobalamin (vitamin B-12) [Vitamin B-12] 1,000 mcg tablet 1,000 mcg PO DAILY Qty: 90 RF: 3 sennosides-docusate sodium [Senna Plus] 8.6-50 mg tablet 1 tab PO HS PRN (Reason: Constipation) Qty: 90 RF: 0 torsemide [Demadex] 20 mg tablet 20 - 40 mg PO DAILY Qty: 90 RF: 3 tramadol [Ultram] 50 mg tablet 100 mg PO BID PRN (Reason: Pain) Qty: 120 RF: 1 Novolog Flexpen U-100 Insulin 100 unit/mL (3 mL) insulin pen 15 units subcut TIDM Qty: 15 RF: 0 Basaglar KwikPen U-100 Insulin 100 unit/mL (3 mL) insulin pen 20 unit subcut QPM RF: 0 warfarin 6 mg tablet 6 mg PO MOWEFR RF: 0 warfarin 4 mg tablet 4 mg PO SUTUTHSA RF: 0 Basaglar KwikPen U-100 Insulin 100 unit/mL (3 mL) insulin pen 35 unit subcut QAM RF: 0 Referrals Referrals: Akbar Oliver MD [Primary Care Provider] - The scribe's documentation has been prepared under my direction and personally reviewed by me in its entirety. I confirm that the note above accurately reflects all work, treatment, procedures, and medical decision making performed by me.
--- NOTE | 2018-11-01 23:52 | History & Physical Report ---
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 Dyspnea/productive cough: Concern for bronchitis with likely asthma exacerbation Afebrile, no WBC elevation CT chest: Cardiomegaly no pulmonary edema, bibasilar reticular/ground glass opacity concerning for atelectasis/fibrotic change, no pleural effusion or adenopathy EK normal sinus rhythm QTc 444 Troponin negative Continue doxycycline 100 mg twice daily Started on methyl Pred 40 mg IV every 8 scheduled Noted on DuoNeb every 4 hours scheduled and guaifenesin twice daily Previous echo from 2007, repeat echo ordered to rule out heart failure/cardiac etiology especially given significant lower extremity edema Recurrent DVTs Continue home warfarin INR 2.1, therapeutic DM: Insulin dependent Continue home long-acting insulin BSG per unit protocol on SSI Hypertension, chronic venous stasis On torsemide Osteoarthritis Continue home tramadol Chronic constipation Continue home Senokot and started on Colace (2) Bronchitis: (3) Peripheral neuropathy: (4) Hypothyroidism: (5) Recurrent deep vein thrombosis (DVT): (6) Chronic venous insufficiency: (7) Generalized osteoarthritis: (8) Diabetes mellitus, type II: History of Present Illness Chief Complaint: SOB, Cough Primary Care Provider: Akbar Oliver MD 87-year-old female with history of diabetes mellitus insulin-dependent, recurrent DVT on Coumadin, hypothyroidism, hyperlipidemia, history of endometrial cancer status post hysterectomy, 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 Shortness of breath is constant and not worse with exertion. Also reports fever, occasional nausea and chronic constipation with occasional bright red blood with stools and she has history of hemorrhoids. Last bowel movement was this morning: Formed, hard, brown but there was some blood mixed with it as well. Patient lives at [facility]. Denies ever smoking. Reports history of bronchitis in the past and asthma recorded as part of history in the past. No episodes for many years until now. Not on any inhalers at home. At this time denies any headache, lightheadedness, chest pain, vomiting, abdominal pain, diarrhea, dysuria, hematuria Surgical history: Appendectomy, cholecystectomy, hysterectomy, right mastoidectomy, cataract, lumbar surgery, right total hip arthroplasty, bilateral knee arthroplasty, right shoulder replacement Social history: Denies ever smoking, has only had about 20 glasses of alcohol and her entire life, denies recreational drug us Allergies Allergy/AdvReac Type Severity Reaction Status Date / Time atorvastatin Allergy Unknown RASH Verified 11/01/18 17:44 ezetimibe Allergy Unknown RASH Verified 11/01/18 17:44 fluoxetine Allergy Unknown RASH Verified 11/01/18 17:44 simvastatin Allergy Unknown RASH Verified 11/01/18 17:44 Sulfa (Sulfonamide Allergy Unknown HAS TAKEN Verified 11/01/18 17:44 Antibiotics) LASIX BEFORE acetaminophen [From Tylox] Allergy Verified 11/01/18 17:44 oxycodone AdvReac Intermediate PAIN Verified 11/01/18 17:44 MED-?OXYCONTIN- WENT CRAZY,BAD DREAMS Home Medications Home Medications Medication Instructions Recorded Confirmed Type Raphael EdwardsUriel U-100 Insulin 20 unit SUBCUT QPM 09/09/18 11/01/18 History cholecalciferol (vitamin D3) 5,000 5,000 unit PO DAILY #90 tab 10/13/18 11/01/18 Rx unit tablet cyanocobalamin (vit B-12) 1,000 1,000 mcg PO DAILY #90 tab 10/13/18 11/01/18 Rx mcg tablet insulin aspart (U-100) 100 unit/mL 15 units SUBCUT TIDM #15 ml 10/13/18 11/01/18 Rx (3 mL) subcutaneous pen sennosides 8.6 mg-docusate sodium 1 tab PO HS PRN #90 tab 10/13/18 11/01/18 Rx 50 mg tablet torsemide 20 mg tablet 20 - 40 mg PO DAILY #90 tab 10/13/18 11/01/18 Rx tramadol 50 mg tablet 100 mg PO BID PRN #120 tab 10/13/18 11/01/18 Rx latanoprost 0.005 % eye drops 1 drp OPHTHALMIC (EYE) .COMPLEX #0 10/24/18 11/01/18 Rx ml Basaglar KwikPen U-100 Insulin 35 unit SUBCUT QAM 11/01/18 11/01/18 History warfarin 4 mg PO SUTUTHSA 11/01/18 11/01/18 History warfarin 6 mg PO MOWEFR 11/01/18 11/01/18 History benzonatate 100 mg PO TID PRN 5 Days #15 cap 11/03/18 Rx prednisone 40 mg PO QAM 2 Days #4 tab 11/03/18 Rx Past Med/Surg History Medical History Diabetes (Chronic) 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 (Acute) CKD (chronic kidney disease) DVT (deep venous thrombosis) Hypertension Surgical History H/O colonoscopy H/O shoulder replacement History of appendectomy History of breast surgery History of cataract surgery History of total hip replacement Hx of cholecystectomy S/P total knee arthroplasty Family History Unknown Coronary heart disease Diabetes FHx: allergies Father FH: deafness or hearing loss Asthma Brother FH: deafness or hearing loss Cancer Sister Breast cancer Social History Preferred Language: Cypriot Communication Ability: Effective Hand Spinner Required: No Beliefs That Will Affect Care: None Current Living Situation: Personal Care Facility Feels Safe at Home: Yes Smoking Status: Never smoker Hx Alcohol Use: No Hx Substance Use: No Review of Systems Review of Systems: As per HPI Physical Exam Physical Exam: General: In NAD HEENT: somewhat dry oral mucosa Neuro: A&O x 4 Pulm: Diffuse rhonchi and wheezing appreciated, coarse but equal breath sounds bilaterally CV: RRR, no m/r/g Abdomen:+BS, no TTP in all quadrants, non-distended LE: 2+ LE edema, chronic venous stasis skin changes Results & Data Vital Signs (Past 12 Hours) Vital Signs Temp Pulse Pulse Resp BP BP Pulse Ox 11/01/18 22:44 89 18 135/81 98 11/01/18 21:51 80 19 96 11/01/18 21:34 83 16 96 11/01/18 20:52 98 11/01/18 20:51 80 L 11/01/18 20:33 82 24 123/62 11/01/18 19:37 80 18 147/68 H 97 11/01/18 19:10 79 21 96 11/01/18 19:00 87 23 96 11/01/18 18:50 81 20 96 11/01/18 18:44 82 20 96 11/01/18 18:20 81 19 95 11/01/18 18:10 84 16 98 11/01/18 18:05 83 18 94 11/01/18 18:01 83 17 166/93 H 93 11/01/18 18:00 86 22 93 11/01/18 17:50 86 18 94 11/01/18 17:40 89 22 94 11/01/18 17:32 89 16 96 11/01/18 17:31 87 26 H 117/55 L 95 11/01/18 17:26 95 11/01/18 17:06 36.9 C 98 H 22 163/78 H 86 L Laboratory Results Abnormal lab results 11/01/18 11/01/18 11/01/18 Range/Units 17:58 17:58 17:58 MCV 101.8 H (80-100) fL RDW Std Deviation 49.5 H (36.4-46.3) fL MPV 10.6 H (7.4-10.4) fL Immature Gran # (Auto) 0.03 H (0.00-0.02) K/uL [place] # (Auto) 0.97 H (0.11-0.59) K/uL PT 20.8 H (9.0-12.0) Seconds INR 2.1 H (0.9-1.1) APTT 36.3 H (21.0-31.0) Seconds Carbon Dioxide 35 H (21-32) mmol/L BUN 23 H (7-18) mg/dl Creatinine 1.40 H (0.6-1.2) mg/dl Glucose 150 H (70-99) mg/dl Albumin 3.2 L (3.4-5.0) gm/dl Albumin/Globulin Ratio 0.8 L (0.9-2) Diagnostic Findings CT chest wo con CT DOSE: 675.07 mGy.cm CLINICAL HISTORY: 87 years-old Female with sob, hypoxia. Acute shortness of breath TECHNIQUE: Multiaxial CT images of the chest were performed without contrast. A dose lowering technique was utilized adhering to the principles of ALARA. COMPARISON: CTA of the chest 10/25/2017, 02/11/2013 FINDINGS: Heterogeneous thyroid. There is no adenopathy by CT size criteria. Study is limited secondary to positioning of the patient's upper extremities and lack of IV contrast. Mild cardiomegaly with coronary arterial calcifications. No thoracic aortic aneurysm. No pneumothorax or pleural effusion. Chronic perihilar and bibasilar opacities are suggestive of areas of mild fibrosis with mild subsegmental bibasilar atelectasis. 5 mm solid nodule of the left upper lobe, image 93 series 4 appears unchanged dating back to 2012 suggestive of benign etiology. Mild mucous plugging about the basal left lower lobe on image 200 series 4. Central airways appear patent. No lobar airspace consolidations suggest pneumonia. No overt pulmonary edema. 2.5 cm lesion of the left adrenal gland is unchanged from 2013 suggestive of benign etiology. Chronic right hemidiaphragmatic elevation. Chronic appearance of the left breast with vascular calcifications. Degenerative changes of the spine and shoulders. Right shoulder arthroplasty. No acute fracture. IMPRESSION: 1. Cardiomegaly without evidence of pulmonary edema. 2. Bibasilar reticular and groundglass opacities are suggestive of atelectasis/fibrotic change. No definite evidence of pneumonia. 3. No pleural effusion or adenopathy. XR chest 2V routine HISTORY: 87 years-old Female Dyspnea acute shortness of breath COMPARISON: Chest radiograph 09/09/2018, CTA chest 10/25/2017 TECHNIQUE: PA and lateral views of the chest FINDINGS: Cardiac silhouette is enlarged, unchanged. Chronic mild right hemidiaphragmatic elevation. Pulmonary vascular congestion with mild interstitial coarsening. Trace fluid layers along the right minor fissure. Trace pleural effusions. Right shoulder arthroplasty. Partially imaged fusion hardware of the lumbar spine. Degenerative changes of the shoulders and spine. IMPRESSION: 1. Cardiomegaly with suggestion of mild pulmonary edema. 2. Trace pleural effusions. Code Status & VTE Plan Code Status DNR/DNI VTE Prophylaxis Plan VTE Prophylaxis will be ordered: Yes Supervising Physician Co-Signing Physician Notes Attending addendum: I have physically seen this patient, have supervised the medical residents activities, and agree with the H&P unless as otherwise noted. Assessment and Plan: Asthma exacerbation with bronchitis and hypoxia- Solu-Medrol 40 mg IV every 8 hours. Doxycycline 100 mg IV twice daily. Duo nebs 4 times daily and every 2 hours as needed. Sputum Gram stain and culture. Recurrent DVT- Therapeutic on warfarin with INR 2.1. Continue Diabetes mellitus- Continue Basaglar insulin 20 units subcu every evening and 35 units subcu every morning. Placed on Accu-Cheks before meals and at bedtime with NovoLog coverage per scale. Remainder of orders and notations as noted. PG Care Time/CCT Total # of Minutes Spent Total Time Spent with Patient: Total time spent is greater than 50% in coordination of care (as documented) at patient's floor/unit and/or counseling patient: Resident Activity Tracking Resident Involvement: Resident Care Provided Care Provided: Adult Hospital Medicine
[2018-11-02] MEDS ORDERED: TRAMADOL HCL 50 MG TABLET PO PRN (01:02)
[2018-11-02] MEDS ORDERED: LACTATED RINGER'S 1,000 ML IV SCH (01:02)
[2018-11-02] MEDS ORDERED: DOCUSATE SODIUM/SENNA 50/8.6MG TAB PO PRN (01:02)
[2018-11-02] MEDS ORDERED: POLYETHYLENE (MIRALAX) 17 GM PACK PO PRN (01:02)
[2018-11-02] MEDS ORDERED: GLUCOSE 40% GEL 15 GM TUBE PO PRN (01:15)
[2018-11-02] MEDS ORDERED: CARBOHYDRATES FOR HYPOGLYCEMIA PO PRN (01:15)
[2018-11-02] MEDS ORDERED: GLUCAGON FOR INJ 1 MG VIAL SQ PRN (01:15)
[2018-11-02] MEDS ORDERED: DEXTROSE 50% 50 ML SYRINGE IV PRN (01:15)
[2018-11-02] MEDS ORDERED: GLUCOSE 10 TABS/TUBE PO PRN (01:15)
[2018-11-02] MEDS: LATANOPROST 0.005% OP SOLN 2.5 ML BTL OPB SCH ×2 (01:45→21:06)
[2018-11-02] MEDS: methylPREDNISolone 40 MG in SYRINGE 0 ML IV SCH ×2 (01:45→10:42)
[2018-11-02] MEDS: DOCUSATE SODIUM 100 MG CAP PO SCH ×3 (01:45→21:06)
[2018-11-02] MEDS: ALBUT/IPRATROP 3MG/0.5MG NEB 3 ML VIAL NEB SCH ×6 (03:18→23:06)
[2018-11-02 05:55] LABS: Basophils # (auto) 0.01 K/uL (0-0.2); Basophils % (auto) 0.1 %; Eosinophils # (auto) 0.01 K/uL (0-0.5); Eosinophils % (auto) 0.1 %; Hematocrit (blood only) 41.6 % (37-47); Hemoglobin 13.5 g/dL (12.0-16.0); Immature Granulocytes # (auto) 0.03 K/uL (0.00-0.02); Immature Granulocytes % (auto) 0.4 %; Lymphocytes # (auto) 0.93 K/uL (1.2-3.4); Lymphocytes % (auto) 13.3 %; Mean Corpuscular Hemoglobin 33.4 pg (25-34); Mean Corpuscular Hgb Conc 32.5 g/dL (32-36); Mean Platelet Volume 10.8 fL (7.4-10.4); Monocytes # (auto) 0.28 K/uL (0.11-0.59); Neutrophils # (auto) 5.71 K/uL (1.4-6.5); Neutrophils % (auto) 82.1 %; Platelet Count 163 K/uL (130-400); RDW Coefficient of Variation 13.3 % (11.5-14.5); RDW Standard Deviation 50.1 fL (36.4-46.3); Red Blood Count 4.04 M/uL (4.2-5.4); White Blood Count 6.97 K/uL (4.8-10.8)
[2018-11-02 06:05] LABS: Prothrombin Time 19.2 Seconds (9.0-12.0)
[2018-11-02 06:36] LABS: BUN Creatinine Ratio 19.1 (10-20); Calcium 8.9 mg/dl (8.5-10.1); Creatinine Clr Calc Pharmacy 29.6 ml/min; Est GFR (African American) 42.5; Est GFR (Non-African American) 36.7; Potassium 4.5 mmol/L (3.5-5.1)
[2018-11-02 06:49] LABS: Beta-Hydroxybutyrate 2.18 mg/dl (0.2-2.81)
[2018-11-02] MEDS: guaiFENesin 600 MG TABCR PO SCH ×2 (07:55→21:06)
[2018-11-02] MEDS: TORSEMIDE 10 MG TAB PO SCH (07:55)
[2018-11-02] MEDS: CHOLECALCIFEROL 1,000 UNITS TAB PO SCH (07:56)
[2018-11-02] MEDS: CYANOCOBALAMIN 500 MCG TABLET (VITAMIN B-12) PO SCH (07:56)
[2018-11-02] MEDS: INSULIN ASPART 100 UNITS/ML 3 ML PEN SC SCH ×4 (08:44→21:05)
[2018-11-02] MEDS: INSULIN GLARGINE SOLOSTAR 100 UNITS/ML 3 ML PEN SQ SCH (08:44)
[2018-11-02] MEDS ORDERED: DOXYCYCLINE HYCLATE 100 MG CAP PO SCH (09:00)
--- NOTE | 2018-11-02 09:44 | Family Medicine Progress Note ---
Date of Service November 02, 2018 Assessment & Plan (1) Hypoxia: Ms. 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 Acute Hypoxic Respiratory Failure -Afebrile, no WBC elevation -CT chest: Cardiomegaly no pulmonary edema, bibasilar reticular/ground glass opacity concerning for atelectasis/fibrotic change, no pleural effusion or adenopathy -suspect symptoms are related to a viral bronchitis given no evidence of pneumonia on imaging -d/c IVF, doxycycline and high dose IV steroids in favor of 40mg of prednisone (will treat w/a short steroid burst) -pt was requiring 3L of oxygen via nasal cannula - not on oxygen at home --> down to 1L by afternoon -hypoxia likely related to mucous plugging -> flutter valve ordered -continue DuoNeb every 4 hours scheduled and guaifenesin twice daily -repeat ECHO ordered given previous echo was done in 2007 -> will not frame changer at this point given her symptoms are unlikely related to a CHF exacerbation Recurrent DVTs -Continue home warfarin -INR 2, therapeutic DM: Insulin dependent -Continue home long-acting insulin -BSG per unit protocol, on SSI -pt missed dose of Lantus last night, and subsequently has been spiking sugars around 370s (also exacerbated by steroids) -> anticipate improvement now that she has been transitioned to oral prednisone Hypertension, chronic venous stasis -continue home torsemide Osteoarthritis -Continue home tramadol Chronic constipation -Continue home Senokot and started on Colace Code status: DNR/DNI DVT Prophylaxis: therapeutic on warfarin Disposition: anticipate d/c tomorrow, if able to wean off of oxygen. Pt lives at assisted living facility [facility] (2) Bronchitis: (3) Peripheral neuropathy: (4) Hypothyroidism: (5) Recurrent deep vein thrombosis (DVT): (6) Chronic venous insufficiency: (7) Generalized osteoarthritis: (8) Diabetes mellitus, type II: Supervising Physician Co-Signing Physician Notes I personally examined the patient and verified all balderas points of history and exam, discussed case, and agree with decision making with Dr Tarmohamed. Feeling better but not yet up to going home. Moved into [place] a few weeks ago and very much enjoying it. Vitals noted, in general she is awake and alert pleasant no distress. HEENT normocephalic atraumatic mucous membranes moist. Lungs show faint expiratory wheeze good left greater than right no rhonchi good effort no accessory muscle use. Skin shows no rashes no pallor or icterus. Acute bronchitis/hypoxic respiratory failurechest x-ray clear, and failed doxycycline, therefore almost certainly viral. Supportive care. Wean steroids. Uncontrolled diabetessteroid related. last A1c reasonable. leg cellulitis -appears superimposed on venous stasis. appears improved. has been treated w course of doxy. no clear need for further abx. Subjective Ms. Fang reports that she feels well today, and in fact, asked if she is able to be discharged. She states she does not have a history of asthma, and does not use inhalers or nebulizers at home. She states she has a remote history of bronchitis several years ago, which resolved, and she has not had any pulmonary issues since. She states she does not use oxygen at home. She states that she remains with a cough, however it is minimally productive. Of note, per nursing, the patient had an episode of bright red blood in her bowel movement this morning. Upon discussion with the patient, she states that she has a history of hemorrhoids and that this is expected for her. She also had several elevated blood sugar readings this morning, with the highest being 348. She did not have her nighttime dose of insulin last night. Review of Systems Constitutional: no fever, no chills and no anorexia Respiratory: + cough; no hemoptysis and no wheezing Cardiovascular: + edema; no chest pain, no palpitations, no syncope and no calf pain Gastrointestinal: no abdominal pain, no nausea and no vomiting Physical Exam Constitutional: WD/WN, vitals as above Respiratory: normal respiratory effort; no respiratory distress Auscultation: + diminished lung sounds and + wheezes Cardiovascular: Rate/Rhythm: regular rate and regular rhythm Extremities: + pedal edema (trace pedal edema bilaterally w/chronic venous stasis changes); no calf tenderness Gastrointestinal (Abdomen): normal bowel sounds, soft, nontender, no hepatosplenomegaly Results & Data Vital Signs (Past 12 Hours) Vital Signs Temp Pulse Resp BP Pulse Ox 11/02/18 08:46 36.8 C 97 H 18 139/78 96 11/02/18 07:38 89 18 97 11/02/18 03:19 79 16 86 L 11/02/18 01:00 36.9 C 87 24 156/80 H 96 11/01/18 22:44 89 18 135/81 98 11/01/18 21:51 80 19 96 PG Care Time/CCT Total # of Minutes Spent Total Time Spent with Patient: Total time spent is greater than 50% in coordination of care (as documented) at patient's floor/unit and/or counseling patient: Resident Activity Tracking Resident Involvement: Resident Care Provided Care Provided: Adult Hospital Medicine
[2018-11-02] MEDS ORDERED: WARFARIN SOD 6 MG TAB PO SCH (16:00)
[2018-11-02] MEDS ORDERED: INSULIN GLARGINE SOLOSTAR 100 UNITS/ML 3 ML PEN SQ SCH (21:00)
[2018-11-02] MEDS ORDERED: BENZONATATE 100 MG CAPSULE PO ONE (23:38)
[2018-11-03] MEDS: ALBUT/IPRATROP 3MG/0.5MG NEB 3 ML VIAL NEB SCH ×3 (03:14→11:07)
--- NOTE | 2018-11-03 07:18 | Discharge Summary ---
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 Shortness of breath is constant and not worse with exertion. Also reports fever, occasional nausea and chronic constipation with occasional bright red blood with stools and she partida s history of hemorrhoids. Last bowel movement was this morning: Formed, hard, brown but there was some blood mixed with it as well. Patient lives at [facility]. Denies ever smoking. Reports history of bronchitis in the past and asthma recorded as part of history in the past. No episodes for many years until now. Not on any inhalers at home. At this time denies any hea dache, lightheadedness, chest pain, vomiting, abdominal pain, diarrhea, dysuria, hematuria Surgical history: Appendectomy, cholecystectomy, hysterectomy, right mastoidectomy, cataract, lumbar surgery, right total hip arthroplasty, bilateral knee arthroplasty, right shoulder replacement Social history: Denies ever smoking, has only had about 20 glasses of alcohol and her entire life, denies recreational drug us Admission Exam Per Admitting Provider General: In NAD HEENT: somewhat dry oral mucosa Neuro: A&O x 4 Pulm: Diffuse rhonchi and wheezing appreciated, coarse but equal breath sounds bilaterally CV: RRR, no m/r/g Abdomen:+BS, no TTP in all quadrants, non-distended LE: 2+ LE edema, chronic venous stasis skin changes Principal Diagnosis Bronchitis Discharge Exam Constitutional WD/WN, vitals as above Respiratory normal respiratory effort; no respiratory distress Auscultation: + diminished lung sounds and + wheezes Cardiovascular Rate/Rhythm: regular rate and regular rhythm Extremities: + pedal edema (trace pedal edema bilaterally w/chronic venous stasis changes) Gastrointestinal (Abdomen) normal bowel sounds, soft, nontender, no hepatosplenomegaly Discharge Data Allergies Allergy/AdvReac Type Severity Reaction Status Date / Time atorvastatin Allergy Unknown RASH Verified 11/01/18 17:44 ezetimibe Allergy Unknown RASH Verified 11/01/18 17:44 fluoxetine Allergy Unknown RASH Verified 11/01/18 17:44 simvastatin Allergy Unknown RASH Verified 11/01/18 17:44 Sulfa (Sulfonamide Allergy Unknown HAS TAKEN Verified 11/01/18 17:44 Antibiotics) LASIX BEFORE acetaminophen [From Tylox] Allergy Verified 11/01/18 17:44 oxycodone AdvReac Intermediate PAIN Verified 11/01/18 17:44 MED-?OXYCONTIN- WENT CRAZY,BAD DREAMS Consultations 11/01/18 21:29 ED Decision to Admit Stat Ordered Studies 11/01/18 18:48 CT chest wo con Stat Hospital Course (1) Hypoxia: Ms. Fang is a 87-year-old female with a history of insulin dependent diabe kristin mellitus, recurrent DVT on Coumadin, hypothyroidism, hyperlipidemia, history of endometrial cancer status post hysterectomy, ductal carcinoma in situ status post right mastectomy, osteoarthritis, spinal stenosis status post multiple back surgeries presents with productive cough and shortness of breath x3 days. Acute Hypoxic Respiratory Failure -Afebrile, no WBC elevation, no hx of asthma or COPD -CT chest: Cardiomegaly, no pulmonary edema, bibasilar reticular/ground glass opacity concerning for atelectasis/fibrotic change, no pleural effusion or adenopathy -suspect symptoms are related to a viral bronchitis given no evidence of pneumonia on imaging -treated with IV steroids initially, transitioned to 40mg of prednisone on discharge x 2 more days for a total of a 5 day steroid burst -pt was requiring 1-2L of oxygen via nasal cannula - not on oxygen at home --> will d/c home with oxygen to use 21/09. Recommend f/u with PCP who can determine when she can d/c her oxygen -hypoxia likely related to mucous plugging -> continue w/flutter valve -tessalon perles ordered prn given pt reports improvement in cough with this -ECHO showed systolic function >70% with no RMWA, and mild LVH Recurrent DVTs -Continue home warfarin -INR 2 on d/c - therapeutic DM: Insulin dependent -Continue home insulin regimen -pt's glucose levels were >300 due to initial IV steroids and missing dose of Lantus, however improved to 167 on d/c with transition to oral steroids Hypertension -continue home torsemide Osteoarthritis -Continue home tramadol Chronic constipation -Continue home Senokot and Colace d/c home -> [facility] (2) Bronchitis: (3) Peripheral neuropathy: (4) Hypothyroidism: (5) Recurrent deep vein thrombosis (DVT): (6) Chronic venous insufficiency: (7) Generalized osteoarthritis: (8) Diabetes mellitus, type II: Total Time Total Time Spent Total Time Spent (In Minutes): Less than 30 Discharge Plan Discharge Items Patient Disposition: Personal Senior Living Reason For Visit: BRONCHITIS Discharge Diagnosis: Bronchitis Discharge Goals: Decrease discomfort, Improve disease control and Improve function Activity: Resume your previous activity Non-emergency contact: Primary Care Provider Call non-emergency contact if: you have any medication questions, your symptoms worsen and you have a fever Follow-up/Referrals: Akbar Oliver MD [Primary Care Provider] - Diet: Carb Consistent or DM2 Addtl Provider Instructions: Ms. Fang, you were seen at [facility] due to a cough and feeling short of breath. The CT scan of your chest did not reveal a pneumonia in your lungs. Your symptoms are consistent with a viral bronchitis, which is inflammation of the airways caused by a virus. We will treat you with a short course of steroids to help reduce this inflammation. Please take your first dose of prednisone tomorrow morning. The prednisone can cause your sugars to be higher than usual, but this will improve once you finish the course. We have also given you a medication called tessalon perles, which you can take up to three times a day as needed for your cough. While you were here, we also did an ultrasound of your heart, and this showed that your heart is functioning well. You were needing a small amount of oxygen to keep your oxygen levels above 90, and therefore we will be sending you home with oxygen that you should use around the clock to keep your oxygen levels up. Please follow up with your family doctor who will tell you when you are safe to stop using the oxygen. It may take several weeks for the cough to resolve, and for you to feel back to your normal self, but each week should feel better than the last. If you have a worsening cough, shortness of breath, fever, or chest pain, please seek medical attention. Prescriptions: New benzonatate 100 mg capsule 100 mg PO TID PRN (Reason: cough) 5 Days Qty: 15 RF: 0 prednisone 20 mg Tablet 40 mg PO QAM 2 Days Qty: 4 RF: 0 Continued latanoprost [Xalatan] 0.005 % drops 1 p ophthalmic (eye) .COMPLEX Qty: 0 RF: 0 cholecalciferol (vitamin D3) [Vitamin D3] 5,000 unit tablet 5,000 unit PO DAILY Qty: 90 RF: 3 cyanocobalamin (vitamin B-12) [Vitamin B-12] 1,000 mcg tablet 1,000 mcg PO DAILY Qty: 90 RF: 3 sennosides-docusate sodium [Senna Plus] 8.6-50 mg tablet 1 tab PO HS PRN (Reason: Constipation) Qty: 90 RF: 0 torsemide [Demadex] 20 mg tablet 20 - 40 mg PO DAILY Qty: 90 RF: 3 tramadol [Ultram] 50 mg tablet 100 mg PO BID PRN (Reason: Pain) Qty: 120 RF: 1 Novolog Flexpen U-100 Insulin 100 unit/mL (3 mL) insulin pen 15 units subcut TIDM Qty: 15 RF: 0 Basaglar KwikPen U-100 Insulin 100 unit/mL (3 mL) insulin pen 20 unit subcut QPM RF: 0 warfarin 6 mg tablet 6 mg PO MOWEFR RF: 0 warfarin 4 mg tablet 4 mg PO SUTUTHSA RF: 0 Basaglar KwikPen U-100 Insulin 100 unit/mL (3 mL) insulin pen 35 unit subcut QAM RF: 0 Stand-Alone Forms: [facility] Discharge Orders: Discharge Order (Routine); Ordered 11/03/18 Ordered By: Bret Keyes Admission Data Admit Date/Time: 11/01/18 23:51 Attending Provider: Arnoldo Pedro Admit Provider: Ramírez Lee Primary Care Provider: Akbar Oliver Other Providers: Ramírez Lee Service: Medical Other Interventions: Discharge Summary Assessment (RN) Last Done: 11/03/18 13:36 DC Date/Time DO NOT enter until pt leaves facility: 11/03/18 14:45 Supervising Physician Co-Signing Physician Notes I personally examined the patient and verified all balderas points of history and exam, discussed case, and agree with decision making with Dr Keyes. Feeling better and would like to go home. Appears to still need oxygen. She is okay with this. Vitals noted, in general she is awake and alert pleasant no distress. HEENT normocephalic atraumatic mucous membranes moist. Breathing unlabored no accessory muscle use good effort. Skin shows no rashes no pallor or icterus. Acute bronchitis/hypoxic respiratory failurechest x-ray clear, and failed doxy cycline, therefore almost certainly viral. Supportive care. Finished with prednisone burst as above. Will need oxygen at home for at least the short-term but foreseeable future. Uncontrolled diabetessteroid related. last A1c reasonable. Stable for home Resident Activity Tracking Resident Involvement: Resident Care Provided Care Provided: Adult Hospital Medicine
[2018-11-03 07:26] VITALS: BP 139/75; TEMP 98.1
[2018-11-03] MEDS: guaiFENesin 600 MG TABCR PO SCH (08:50)
[2018-11-03] MEDS: TORSEMIDE 10 MG TAB PO SCH (08:50)
[2018-11-03] MEDS: INSULIN GLARGINE SOLOSTAR 100 UNITS/ML 3 ML PEN SQ SCH (08:51)
[2018-11-03] MEDS: CYANOCOBALAMIN 500 MCG TABLET (VITAMIN B-12) PO SCH (08:51)
[2018-11-03] MEDS: CHOLECALCIFEROL 1,000 UNITS TAB PO SCH (08:51)
[2018-11-03] MEDS: INSULIN ASPART 100 UNITS/ML 3 ML PEN SC SCH ×2 (08:52→12:29)
[2018-11-03] MEDS: DOCUSATE SODIUM 100 MG CAP PO SCH (08:53)
[2018-11-03] MEDS ORDERED: predniSONE 20 MG TAB PO SCH (09:00)
[2018-11-03] MEDS ORDERED: BENZONATATE 100 MG CAPSULE PO PRN (09:23)
[2018-11-03 11:17] VITALS: PULSE 88; O2SAT 98
[2018-11-03] MEDS ORDERED: WARFARIN SOD 4 MG TAB PO SCH (16:00)
== END 2018-11-03 14:45 | disposition home or self-care (01) | DRG 189 ==
LOC: ED 17:03 → SUATTDRO 23:51 → 4W 23:51